=== PATIENT | male | born 1950 | race African-American/Black ===

== ENCOUNTER 2017-12-26 13:31 | Outpatient (CLI) | payer MEDICARE ==
[2017-12-26 15:39] LABS: #Basophils 0.1 thou/uL (0.0-0.2); #Eosinphils 0.5 thou/uL (0.0-0.7); #Lymphocytes 2.1 thou/uL (1.20-3.40); #Monocytes 1.3 thou/uL (0.11-0.59); #Neutrophils 4.9 thou/uL (1.40-6.50); %Basophils 0.8 % (0.0-1.0); %Eosinophils 5.3 % (0.0-10.0); %Monocytes 14.5 % (0.0-10.0); %Neutrophils 55.5 % (42.0-75.0); Hemoglobin 12.6 g/dL (14.0-18.0); Mean Corpuscular HGB CONC 31.9 g/dL (32.0-36.0); Mean Corpuscular Hemoglobin 27.5 pg (27.0-31.0); Mean Corpuscular Volume 86.2 fL (78.0-98.0); Mean Platelet Volume 6.1 fL (7.4-10.4); Platelet Count 321 thou/uL (130-400); RBC Distribution Width 12.6 % (11.5-14.5); Red Blood Cell (RBC) Count 4.59 mill/uL (4.70-6.10); White Blood Cell (WBC) Count 8.9 thou/uL (4.8-10.8)
[2017-12-26 16:07] LABS: Anion Gap 12 mmol/L (10-20); BUN (Urea Nitrogen) 12 mg/dL (8.4-25.7); Calc. Creatinine Clearance 0 mL/min (70-130); Calcium 9.5 mg/dL (7.8-10.44); Carbon Dioxide 25 mmol/L (23-31); Chloride 103 mmol/L (98-107); Estimated GFR-MDRD Greater than 90; Glucose 79 mg/dL (80-115); Potassium 4.2 mmol/L (3.5-5.1); Sodium 136 mmol/L (136-145)
== END 2017-12-26 13:32 | disposition home or self-care (01) ==
LOC: LABBT 13:31
PROVIDERS: ATTEND Specialist
DX: Z01.818 Encounter for other preprocedural examination (principal); C83.30 Diffuse large B-cell lymphoma, unspecified site
CPT/HCPCS: 80048; 85025; 93005; 93010; 93306

== ENCOUNTER 2017-12-27 12:55 | Outpatient (CLI) | payer MEDICARE ==
--- NOTE | 2017-12-27 15:39 | PET ---
PET CT: 12/27/17 HISTORY: 67-year-old male with lymphoma. Exam requested for initial staging. TECHNIQUE: PET scan with CT attenuation correction is performed from the base of the brain to the proximal thigh s following intravenous administration of 10.2 millicuries [id number] in the right wrist. FINDINGS: Extensive hypermetabolic guzman metabolism is seen in the neck, chest, axilla, abdomen, pelvis and ing uinal regions. These include The nasopharynx, bilateral cervical, bilateral axillary, right hilar, an d infrahilar, right internal mammary, abdominopelvic and bilateral inguinal lymph nodes. Maximum SUV is noted in the right inguinal lymph node measuring 48. There is increased uptake in the spleen. Upta ke is markedly increased compared to the liver. No hypermetabolic pulmonary nodules, liver, adrenal, or skeletal lesions are seen. There is physiolog ic activity in the GI and tracts and the visualized portions of the brain. The CT scan used for attenuation correction demonstrates no evidence of pleural effusions or ascites. There is a 2 cm right adrenal nodule without abnormal FDG localization (SUV 1.5). IMPRESSION: Viable lymphoma on both sides of the diaphragm with a Deauville criteria score of 5. POS: [facility]
== END 2017-12-27 12:56 | disposition home or self-care (01) ==
LOC: PET 12:55
PROVIDERS: ATTEND Internal Medicine Hematology & Oncology
DX: C85.90 Non-Hodgkin lymphoma, unspecified, unspecified site (principal)
CPT/HCPCS: 78815; A9552

== ENCOUNTER 2017-12-30 10:37 | Day surgery (SDC) | payer MEDICARE ==
[2017-12-26 14:36] VITALS: BMI 46.0
[2017-12-30] MEDS ORDERED: CEFAZOLIN/Water 2 GM/20 ML SYRINGE ONE (11:05)
[2017-12-30] MEDS ORDERED: Ketorolac Tromethamine 30 MG/ML VIAL ONE (11:05)
[2017-12-30] MEDS ORDERED: Lidocaine 1% (PF) 30 ML VIAL ONE (12:18)
[2017-12-30] MEDS ORDERED: Bupivacaine/Epinephrine 0.25% 30 ML VIAL ONE ×2 (12:18→13:12)
[2017-12-30] MEDS ORDERED: Fentanyl 100 MCG/2 ML VIAL ONE (12:33)
[2017-12-30] MEDS ORDERED: Midazolam HCl 2 mg/2 ml Vial ONE (12:33)
[2017-12-30] MEDS ORDERED: Lidocaine 2% Jelly 5 ML TUBE ONE (12:33)
[2017-12-30] MEDS ORDERED: Succinylcholine Chloride 20 MG/ML 10 ml SYRINGE FS ONE (14:01)
[2017-12-30] MEDS ORDERED: Glycopyrrolate 0.2 MG/ML 5 ML SYRINGE ONE (14:01)
[2017-12-30] MEDS ORDERED: Ondansetron HCl/PF 4 MG/2 ML Vial ONE (14:01)
[2017-12-30] MEDS ORDERED: PHENYLEPHRINE-NS 100 MCG/ML 10 ML SYRINGE ONE (14:01)
[2017-12-30] MEDS ORDERED: Dexamethasone 20 MG/5 ML VIAL ONE (14:01)
[2017-12-30] MEDS ORDERED: PROPOFOL 200 MG/20 ML VIAL ONE (14:01)
[2017-12-30] MEDS ORDERED: Lidocaine 1% PF 5 ML VIAL ONE (14:01)
--- NOTE | 2017-12-30 15:12 | RAD ---
CHEST ONE VIEW: History: Mediport placement. Comparison: 10-22-13 FINDINGS: Cardiac silhouette is magnified by projection. Pulmonary vasculature is unremarkable. Mediastinum is midline. Tip of a right subclavian Port-a-cath projects over the superior vena cava. No evidence of p neumothorax. IMPRESSION: Right subclavian Mediport is in good radiographic position. POS: [facility]
--- NOTE | 2017-12-30 16:40 | OP ---
DATE OF PROCEDURE: 12/30/2017 PREOPERATIVE DIAGNOSIS: Lymphoma. POSTOPERATIVE DIAGNOSIS: Lymphoma. OPERATION PERFORMED: Right subclavian standard size power compatible MediPort placement, right infra inguinal lymph node excisional biopsy. SURGEON: Camilo Garcia M.D. ANESTHESIA: General endotracheal per Rafat Oreilly CRNA. INDICATIONS: The patient is a morbidly obese 67-year-old black male. He has been diagnosed with lym phoma following needle biopsy. Additional tissue is requested for further diagnosis. Port is placed for chemotherapy. DESCRIPTION OF PROCEDURE: Informed consent was obtained. The patient taken to the operating room wh ere general endotracheal anesthesia obtained with the patient in supine position. Right chest and ri ght groin was prepped with ChloraPrep and draped in sterile fashion. Local anesthetic was infiltrate d in the right subclavian location. Large gauge needle was passed under the clavicle and subclavian vein and guidewire was passed through the needle and fluoroscopically confirmed to enter the superior vena cava. Additional local anesthetic was infiltrated. A transverse incision was created based on needle insertion site. Subcutaneous pocket was dissected. Introducer dilator was passed over the g uidewire. Catheter was passed through the introducer and the introducer was removed in the usual pee l-apart fashion. The catheter was positioned with the tip at the atrial caval junction. It was trimmed to the appropr iate location and secured to the hub of the MediPort. The port was secured to pectoral fascia with 2 interrupted sutures of 3-0 Prolene. Wound was closed in layers with 3-0 and 4-0 Monocryl. Dermabon d was placed externally. Attention was turned to the right groin. There is easily palpable lymph node in infrainguinal locati on. Local anesthetic was infiltrated using 0.25% Marcaine with epinephrine. Transverse incision was created over the palpable mass. Dissection was carried directly down onto the enlarged lymph node. This was carefully dissected circumferentially, dividing all investing vasculature and lymphatics be tween hemostats and 3-0 silk ties. The specimen was passed off the field and sent as a fresh specime n. The wound was closed in layers using interrupted sutures of 3-0 Vicryl to approximate the deep la yers and 3-0 Monocryl suture to approximate the subcutaneous tissue. Skin edges approximated with 4- 0 Monocryl subcuticular suture and Dermabond was placed externally. There were no complications. Bl ood loss was negligible. The patient tolerated the procedure well and was taken to recovery room in stable condition.
== END 2017-12-30 15:35 | disposition home or self-care (01) ==
LOC: SDC 10:37
PROVIDERS: ATTEND Specialist
PROC: 07BH0ZX Excision of Right Inguinal Lymphatic, Open Approach, Diagnostic (ICD-10-PCS; principal; 2017-12-30)
PROC: 0JH60WZ Insertion of Totally Implantable Vascular Access Device into Chest Subcutaneous Tissue and Fascia, Open Approach (ICD-10-PCS; 2017-12-30)
PROC: 02HV33Z Insertion of Infusion Device into Superior Vena Cava, Percutaneous Approach (ICD-10-PCS; 2017-12-30)
PROC: B518YZA Fluoroscopy of Superior Vena Cava using Other Contrast, Guidance (ICD-10-PCS; 2017-12-30)
DX: C83.35 Diffuse large B-cell lymphoma, lymph nodes of inguinal region and lower limb (principal); I10 Essential (primary) hypertension; G47.30 Sleep apnea, unspecified; G89.29 Other chronic pain; F32.9 Major depressive disorder, single episode, unspecified; G40.909 Epilepsy, unspecified, not intractable, without status epilepticus; M54.9 Dorsalgia, unspecified; Z88.0 Allergy status to penicillin; Z88.5 Allergy status to narcotic agent; Z88.8 Allergy status to other drugs, medicaments and biological substances; Z79.82 Long term (current) use of aspirin; Z79.899 Other long term (current) drug therapy
CPT/HCPCS: 36561; 38500; 71045; 88184; 88305; 88341; 88342; 88360; 88365; C1788; J0131; J1100; J1642; J1885; J2001; J2250; J2405; J2704; J3010

== ENCOUNTER 2018-01-25 07:31 | Inpatient (IN) | payer MEDICARE ==
[2018-01-25 08:19] LABS: Hemoglobin 10.8 g/dL (14.0-18.0); Mean Corpuscular Hemoglobin 26.9 pg (27.0-31.0); Mean Corpuscular Volume 84.3 fL (78.0-98.0); Mean Platelet Volume 6.8 fL (7.4-10.4); Platelet Count 330 thou/uL (130-400); RBC Distribution Width 15.1 % (11.5-14.5); Red Blood Cell (RBC) Count 4.01 mill/uL (4.70-6.10); White Blood Cell (WBC) Count 12.7 thou/uL (4.8-10.8)
[2018-01-25 08:28] LABS: INR-International Normal Ratio 1.3; PTT 30.9 SEC (22.9-36.1)
--- NOTE | 2018-01-25 08:37 | RAD ---
CHEST 1 VIEW: Date: 01/25/18 HISTORY: Hypotension. Weakness. COMPARISON: 12/30/17. FINDINGS: Cardiac silhouette is magnified by projection. Pulmonary vasculature upper limits of normal and accen tuated by shallow inspiration. Mediastinum is midline with right subclavian MediPort. No lobar consol idation or evidence of pneumothorax. IMPRESSION: Stable radiographic appearance of the chest. No active cardiopulmonary abnormalities are demonstrated . POS: [facility]
[2018-01-25 08:39] LABS: ALT (SGPT) 34 U/L (8-55); AST (SGOT) 68 U/L (5-34); Albumin 3.1 g/dL (3.4-4.8); Alkaline Phosphatase 96 U/L (40-150); Anion Gap 22 mmol/L (10-20); BUN (Urea Nitrogen) 28 mg/dL (8.4-25.7); Bilirubin, Total 0.9 mg/dL (0.2-1.2); CK (CPK) 53 U/L (30-200); Calc. Creatinine Clearance 0 mL/min (70-130); Calcium 9.4 mg/dL (7.8-10.44); Carbon Dioxide 18 mmol/L (23-31); Chloride 101 mmol/L (98-107); Estimated GFR-MDRD 71; Globulin 3.2 g/dL (2.4-3.5); Glucose 69 mg/dL (80-115); Potassium 4.3 mmol/L (3.5-5.1); Protein, Total 6.3 g/dL (5.8-8.1); Sodium 137 mmol/L (136-145)
[2018-01-25 08:42] LABS: CKMB 4.1 ng/mL (0-6.6)
[2018-01-25 08:47] LABS: Troponin I 0.403 ng/mL (< 0.028)
[2018-01-25 08:56] LABS: Band 4 % (5-11); Lymphocytes 19 % (21-51); MDiff Complete? YES; Monocytes 15 % (0-10); Neutrophil 59 % (42-75); PLT Morphology Comment Appears Adequate; Polychromasia SLIGHT = 2-3 cells (100X) (0-2/hpf); Promyelocytes 1 % (0-0); Reactive Lymphocytes 1 % (0-10); Target Cells SLIGHT = 2-5 cells (100X) (0-1/hpf)
[2018-01-25] MEDS ORDERED: Enoxaparin Sodium 100 MG/ML SYRINGE ONE (09:09)
[2018-01-25] MEDS ORDERED: Enoxaparin Sodium 30 MG/0.3 ML SYRINGE ONE (09:09)
[2018-01-25 09:56] LABS: Magnesium 2.4 mg/dL (1.6-2.6); Phosphorus 3.6 mg/dL (2.3-4.7)
--- NOTE | 2018-01-25 10:16 | HP ---
DATE OF ADMISSION: 01/25/2018 PRIMARY CARE PHYSICIAN: Dr. Brandie Graham. PRIMARY ONCOLOGIST: Dr. Jaramillo. PRIMARY SHEET METAL SHOP SUPERVISOR: Dr. Zaid Gilbert. CHIEF COMPLAINT: Generalized weakness. HISTORY OF PRESENT ILLNESS: The patient is a 67-year-old male with hypertension , congestive heart failure in the past with recent diagnosis of large B cell lymphoma, presented to the emergency room with generalized weakness that has been going on for the last 1-2 weeks. It got worse today for which he presented to the emergency room. He has not been eating and drinking well due to significant throat pain and difficulty swallowing from lymphoma. His overall strength has been declining. He is unable to ambulate. He also had intermittent palpitations without any chest discomfort. He gets short of breath on minimal exertion. He denies any focal deficits, fever, chills or syncope. He is compliant with all of his medications including lisinopril and Lasix. In the emergency room, he was found to have hypotensive with blood pressure of 92/52 with lactic acid of 9 and troponin of 0.4. He received 1 dose of Lovenox , aspirin and IV fluids in the emergency room. PAST MEDICAL HISTORY: 1. Hypertension. 2. History of congestive heart failure with recent echocardiogram showing left ventricular ejection fraction of 60%-65% with grade I/III diastolic dysfunction. 3. Dyslipidemia. 4. Chronic low back pain. 5. Glaucoma. 6. Degenerative joint disease. 7. Recent diagnosis of large B cell lymphoma. PAST SURGICAL HISTORY: 1. Recent MediPort placement. 2. Lymph node biopsy. 3. I&D of right index finger. 4. Right knee arthroscopy. ALLERGIES: The patient is allergic to PENICILLIN, MORPHINE and FLUOXETINE. CURRENT HOME MEDICATIONS: Confirmed with the medication bottles at the bedside , aspirin 81 mg daily, Lasix 40 mg daily, hydralazine 50 mg twice a day, Lisinopril 40 mg daily, Procardia-XL 60 mg daily, simvastatin 40 mg at bedtime, timolol and latanoprost eyedrops, Zocor 40 mg at bedtime. SOCIAL HISTORY: Patient currently lives at home with his family. Denies any alcohol, tobacco or drug use. He is FULL CODE, makes his own decisions with the help of his family. FAMILY HISTORY: Negative for heart disease. REVIEW OF SYSTEMS: The following complete review of systems was negative, unless otherwise mentioned in the HPI or below: Constitutional: Weight loss or gain, ability to conduct usual activities. Skin: Rash, itching. Eyes: Double vision, pain. ENT/Mouth: Nose bleeding, neck stiffness, pain, tenderness. Cardiovascular: Palpitations, dyspnea on exertion, orthopnea. Respiratory: Shortness of breath, wheezing, cough, hemoptysis, fever or night sweats. Gastrointestinal: Poor appetite, abdominal pain, heartburn, nausea, vomiting, constipation, or diarrhea. Genitourinary: Urgency, frequency, dysuria, nocturia. Musculoskeletal: Pain, swelling. Neurologic/Psychiatric: Anxiety, depression. Allergy/Immunologic: Skin rash, bleeding tendency. PHYSICAL EXAMINATION: VITAL SIGNS: Recent vital signs showed temperature 98.8, blood pressure 97/58, pulse rate of 73, respiration 22 with O2 saturation 94% on room air. GENERAL: A 67-year-old male, ill appearing. Denies any pain. Feels generally weak. HEENT: Head is atraumatic, normocephalic. Sclerae are anicteric. Moist mucous membrane, no oral lesion. NECK: Supple, no JVD appreciated. No carotid bruit. LUNGS: Clear to auscultation bilaterally with scattered rales at bases. HEART: S1, S2 present. Regular rate and rhythm, 2/6 systolic murmur over the mitral area. ABDOMEN: Obese, soft. Bowel sounds present. EXTREMITIES: A 1+ edema in bilateral lower extremities. No calf tenderness. SKIN: Warm and dry. LYMPH NODES: No palpable lymph nodes in the neck. PERIPHERAL VASCULAR: Radial pulses palpable bilaterally. NEUROLOGIC: Grossly nonfocal. Power was 5/5 in all extremities. Finger-to- nose test was normal. PSYCHIATRIC: The patient is alert, awake, oriented x3. LABORATORY DATA AND X-RAY FINDINGS: 1. CBC showed WBC 12.7 with hemoglobin 10.8, hematocrit 33.8, platelet of 330. 2. INR 1.3, PT 16.0. 3. Lactic acid 9, glucose of 69, AST 68, ALT 34. Troponin of 0.403, bicarbonate 18, BUN 28, creatinine 1.22. LDH was 2368. 4. Chest x-ray by my review was negative for infiltrate or edema. 5. EKG by my review showed atrial flutter, rate controlled. IMPRESSION: 1. Generalized weakness, multifactorial. 2. Elevated troponins secondary to non-ST elevation myocardial infarction with New onset Atrial flutter. Rule out pulmonary embolism. 3. Hypotension. Possibilities include severe dehydration from poor oral intake due to significant lymphadenopathy. Other possibility could be sepsis. Blood cultures have been sent. 4. Metabolic acidosis/lactic acidosis. 5. Dehydration. 6. Recent diagnosis of large B cell lymphoma with recent MediPort placement. 7. MORPHINE, PENICILLIN, and PROZAC allergy. 8. Chronic anemia. 9. Leukocytosis of unclear etiology, probably sepsis induced. 10. Deconditioning. 11. Dyslipidemia. 12. Glaucoma. 13. Morbid Obesity BMI 44. PLAN: The patient will be monitored in the intermediate care unit setting. Cardiology and Oncology will be consulted. We will continue IV fluids. His BNP was normal. Lovenox for Atrial flutter. Rule out pulmonary embolism. Recheck ketones. Empiric antibiotics. We will repeat lactic acid. Consult physical therapy, occupation therapy. Echocardiogram was recently done and was reviewed. A.m. labs. Plan of care was discussed with the patient in detail. He stated understanding. MTDD
--- NOTE | 2018-01-25 10:22 | CT ---
CTA CHEST WITH CONTRAST: Date: 01/25/18 COMPARISON: None. HISTORY: Lymphoma with generalized weakness and shortness of breath. TECHNIQUE: Multiple contiguous axial images were obtained in a CTA of the chest with contrast per pulmonary embo lism protocol. 3D oblique MIP reformats and direct coronal reformats were performed. FINDINGS: The pulmonary arteries are well opacified without filling defects to suggest pulmonary emboli. The he art is normal in size without focal cardiac abnormality. There are multiple enlarged hilar and mediastinal lymph nodes, as well as enlarged lymph nodes in the axillary regions extending up to the supraclavicular regions. This is consistent with the patient's diagnosis of lymphoma. Degenerative changes are seen in the spine. The visualized subdiaphragmatic structures are unremarkab le. No focal infiltrates are seen in the lungs. No pneumothorax or pleural effusions are seen. There is a calcified granuloma in the left apex. IMPRESSION: 1. No evidence of pulmonary thromboembolism. 2. Enlarged lymph nodes in multiple areas consistent with patient's diagnosis of lymphoma. POS: [facility]
[2018-01-25] MEDS ORDERED: ISOVUE-370 76%-LOCM 1 ML ONE (11:10)
[2018-01-25] MEDS ORDERED: Calcium Carbonate 500 MG ChewTAB PO PRN (12:45)
[2018-01-25] MEDS ORDERED: Mag-Al 1200 mg/1200 mg/30 ML UDCUP PO PRN (12:45)
[2018-01-25] MEDS ORDERED: Milk Of Magnesia 30 ML UDCUP PO PRN (12:45)
[2018-01-25] MEDS ORDERED: Ondansetron HCl/PF 4 MG/2 ML Vial IVP PRN (12:45)
[2018-01-25] MEDS ORDERED: Ondansetron ODT 4 MG TAB PO PRN (12:45)
[2018-01-25] MEDS ORDERED: Senokot 8.6 MG TAB PO PRN (12:45)
[2018-01-25] MEDS ORDERED: Sodium Chloride 0.9% 1,000 ML IV SCH (12:45)
[2018-01-25] MEDS ORDERED: Nitroglycerin 0.4 MG TAB (25 Tab Bottle) PO PRN (12:45)
[2018-01-25 12:54] LABS: Lactic Acid 8.1 mmol/L (0.5-2.2)
[2018-01-25] MEDS ORDERED: cefTRIAXone\\ROCEPHIN 1 GM in Sodium Chloride 0.9% 100 ML IVPB SCH (13:00)
[2018-01-25 13:45] LABS: Troponin I 0.405 ng/mL (< 0.028)
[2018-01-25] MEDS ORDERED: Chloraseptic Spray 180 ml Bottle PO PRN (14:26)
[2018-01-25] MEDS: Lidocaine Viscous Sol 2% 15 ml UD Cup SSP PRN ×2 (15:50→21:09)
[2018-01-25] MEDS: Sodium Chloride 0.9% 1,000 ML IV SCH ×2 (15:53→21:12)
[2018-01-25 16:27] LABS: Bilirubin Small (Negative); Blood, Urine Negative (Negative); Clarity CLEAR (Clear); Glucose, Urine (Dipstick) Negative (Negative); Leukocyte Negative (Negative); Nitrite Negative (Negative); Protein, Urine (Dipstick) 30 mg/dL (Neg-Trace); Specific Gravity, Urine 1.025 (1.002-1.036); Urobilinogen 0.2 mg/dL (0.2-1.0)
[2018-01-25 16:27] LABS: Critical Call Chem Troponin I RESULT DECREASING; Troponin I 0.404 ng/mL (< 0.028)
[2018-01-25 16:29] LABS: Squamous Epithelial 0-3 HPF (0-3); WBC/HPF 0-3 HPF (0-3)
[2018-01-25 16:34] LABS: Pathc Cast-AUWi Flag 4.94 (0-2.49)
[2018-01-25 16:49] LABS: Bacteria/HPF 4+ HPF (None Seen); Manual Microscopic Reviewed? No Path Casts Seen; RBC/HPF None Seen HPF (0-3); Renal Epithelial None Seen HPF (0-3); Transitional Epithelial NONE SEEN HPF (0-3)
--- NOTE | 2018-01-25 17:54 | CON ---
DATE OF CONSULTATION: 01/25/2018 REASON FOR CONSULTATION: Lymphoma. HISTORY OF PRESENT ILLNESS: Mr. Cordova is a 67-year-old -[place]onegas[place] male who was diagnosed with a large B cell lymphoma in 11/2017. He presented with several-week history of fatigue and swelling of the neck and axilla area. He had night sweats. A CT scan confirmed the extensive lymphadenopathy with the largest right jugulodigastric node measuring 2.1 x 2.2 cm. He was seen by Dr. Bowling, ENT, who performed a fine needle aspiration of a neck nodule, findings confirmed a large B cell lymphoma. He required more tissue for molecular studies so underwent a biopsy of lymph node, but it confirmed diffuse large B cell lymphoma. He is positive for BCL 6 rearrangement, polysomy 8. He had a PET scan performed in early December that showed lymphoma on both sides of the diaphragm including extensive hypermetabolic nodules in the neck, chest, axilla , abdomen and pelvis and inguinal regions. He had an echocardiogram, which showed EF of 60%. He was undergoing financial clearance and assistance for chemotherapy as he had an extremely high copay with his insurance. He was financially cleared and was scheduled to see me tomorrow for chemotherapy teaching. Over the past month, he has lost over 30 pounds. He has had significant night sweats and having more odynophagia. He has been able to swallow his pills and take his medications daily. He presented to the emergency room today for generalized weakness. He was mildly dehydrated and admitted for further treatment. PAST MEDICAL HISTORY: 1. 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 2. Hypertension. 3. History of cerebrovascular accident. 4. Dyslipidemia. PAST SURGICAL HISTORY: 1. Recent MediPort placement. 2. Lymph node biopsy. 3. Knee surgery. 4. Index finger I&D. ALLERGIES: FLUOXETINE, MORPHINE and PENICILLIN. HOME MEDICATIONS: 1. Aspirin 81 mg daily. 2. Lasix 40 mg daily. 3. Apresoline 50 mg b.i.d. 4. Lisinopril 40 mg daily. 5. Nifedipine 60 mg daily. 6. Zocor 40 mg daily. FAMILY HISTORY: Brother has colon cancer. SOCIAL HISTORY: , has 3 grown children, lives alone. No alcohol, tobacco or illicit drug use. REVIEW OF SYSTEMS: Constitutional: No fever or chills. Positive for night sweats and 30-pound weight loss. Eyes: No blurred or double vision. ENT: Positive for pain, hoarseness, sore throat and dysphagia. Cardiovascular: No chest pain, palpitations, syncope. Respiratory: Positive for shortness of breath, no dyspnea on exertion or orthopnea. Gastrointestinal: No nausea, vomiting, diarrhea, constipation or abdominal pain. Genitourinary: No dysuria or hematuria. Musculoskeletal: Positive for back pain. Skin: No rash or pruritus. Hematologic: Denies bleeding, bruising or clotting. Neurologic: Positive for weakness. Psychiatric: Positive for depression. PHYSICAL EXAMINATION: VITAL SIGNS: Temperature is 98.5, pulse is 71, respiratory rate 24, BP is 91/ 51. GENERAL: This is an obese male in no acute distress. HEENT: Normocephalic, atraumatic. Pupils equal and reactive to light. NECK: Tender with palpable lymphadenopathy. CARDIOVASCULAR: Regular rate and rhythm. LUNGS: Clear. ABDOMEN: Obese, mildly tender to palpation. No hepatosplenomegaly. EXTREMITIES: No clubbing, cyanosis or edema. SKIN: No rash. LYMPHATIC: He has bilateral cervical, axillary lymphadenopathy, has palpable inguinal node lymphadenopathy. NEUROLOGIC: Deficit nonfocal. PERTINENT LABORATORY AND X-RAYS: Current WBCs are 12.7, hemoglobin 10.8, hematocrit 33.8, platelet count 330,000, 59% neutrophils, 4% bands, 20% lymphocytes. PT 16.0, INR is 1.3, PTT is 30.9. Sodium is 137, potassium 4.3, chloride 101, CO2 is 18, BUN is 28, creatinine 1.22. Lactic acid is 9, total bilirubin is 0.9, AST 68, ALT 34, alkaline phosphatase is 96. LDH is 2368, CK- MB is 4.1, troponin 0.403. BNP is 98, serum total protein 6.3, albumin 3.1, globulin 3.2. A CT angio of the chest showed no evidence of pulmonary embolism. IMPRESSION: 1. Stage IV diffuse large B cell lymphoma with extensive neck, chest, axilla, abdominal, pelvis, and inguinal lymphadenopathy. 2. Odynophagia secondary to #1. 3. Weakness. DISCUSSION: The patient has been started on some IV fluids. I will check uric acid and start allopurinol in anticipation of cycle 1 of chemotherapy in the next couple of days. Risks were discussed with the patient which includes tumor lysis syndrome and possible . He understands the risk. We discussed code status. We will ask Palliative Care Team to assist with advanced directives. We will follow him closely. Thank you for the consult. NIRANJAN
[2018-01-25] MEDS: Metoprolol Tartrate 25 MG TAB PO SCH (21:10)
[2018-01-25] MEDS: Allopurinol 300 MG TAB PO SCH (21:10)
[2018-01-25] MEDS: Enoxaparin Sodium 100 MG/ML SYRINGE SC SCH (21:10)
[2018-01-25] MEDS: Docusate 100 MG CAP PO SCH (21:11)
[2018-01-25] MEDS: Famotidine 20 MG TAB PO SCH (21:11)
[2018-01-25] MEDS: Timolol 0.5% Ophth Soln 5 ml Bottle L EYE SCH (21:11)
[2018-01-25] MEDS: Latanoprost 0.005% Ophth Soln 2.5 ml Bottle EA EYE SCH (21:12)
--- NOTE | 2018-01-26 00:41 | CON ---
CARDIOLOGY CONSULTATION DATE OF CONSULTATION: 01/25/2018 PRIMARY CARE PHYSICIAN: Dr. Brandie Graham. PRIMARY TORPEDO MAN: Dr. Zaid Gilbert. REFERRING PHYSICIANS: Dr. Moreau and Dr. Joyce. REASON FOR CARDIOLOGY CONSULTATION: Non-STEMI. HISTORY OF PRESENT ILLNESS: Mr. Cordova is a 67-year-old -[place]ones[place] male with a significant history of large B cell lymphoma, hypertension, chronic diastolic heart failure, hyperlipidemia, sleep apnea, and obesity. The patient started having the weakness since patient underwent a MediPort placement in for treatment of large B cell lymphoma. He also lost appetite because of pain in his throat and unable to swallow well due to the lymphoma. Today, the patient decided to call the EMS because he could not ambulate well, experienced of dizziness, and severe weakness. At that ER, the patient was found to have Atrial flutter with heart rate 60s to 70s. Cardiology consult was ordered due to new onset of Atrial flutter and the elevated troponin, which was 0.403 and now second troponin 0.405. Patient denies any shortness of breath , dizziness, lightheadedness, heaviness, or discomfort in his chest, palpitation , fluttering in his chest, nauseate, or numbness in the left upper extremity or any other cardiac complaints except worsening of weakness. He has lost about 30 pounds in the last 1 month due to very poor appetite. His recent echocardiogram was done in 12/26/2017, which shows EF 60-65%, grade I diastolic dysfunction, mild tricuspid regurgitation, and mild mitral valve regurgitation. The patient's last stress test was done in 2001, which shows mild reversibility in the inferior wall and diastolic volume suggested diffuse atherosclerotic cardiomyopathy and minimal reversibility in the inferior wall. Patient has had a Holter monitor in 2009 for a complaint of palpitation which showed normal. The patient had a vein study done in 2009, which shows no evidence of DVT and no evidence of any reflux in the bilateral lower extremities. The patient had a PET scan done in 12/27/2017, shows visible lymphoma on the both sides of diaphragm with Deauville criteria score of 5. CT scan today showed no evidence of pulmonary thrombus, but present of enlarged lymph nodes in the multiple areas consistent with the patient's diagnosis of lymphoma. PAST MEDICAL HISTORY: 1. Hypertension. 2. Obstructive sleep apnea. He uses BiPAP at night. 3. Hyperlipidemia. 4. Left foot drop. He wears the brace. 5. Glaucoma. 6. Hard to hearing. 7. Chronic back pain due to three hernia disk. 8. Large B cell lymphoma. 9. Chronic diastolic heart failure. PAST SURGICAL HISTORY: 1. Right hand surgery. 2. Right knee surgery. FAMILY HISTORY: There is significant family history of hypertension. Patient' s brother has a history of a colon cancer. Patient's father has a history of CVA. SOCIAL HISTORY: The patient denies tobacco, EtOH, or illicit drug abuse. Prior to this admission, he was able to move around self and could drive. ALLERGIES: The patient is allergic to PENICILLIN, MORPHINE, FLUOXETINE. CURRENT MEDICATIONS: Aspirin 81 mg once a day, Lasix 40 mg once a day, hydralazine 50 mg twice a day, lisinopril 40 mg once a day, Procardia-XL 60 mg once a day, simvastatin 40 mg once a day, timolol and latanoprost eyedrops, and Zocor 40 mg at bedtime. REVIEW OF SYSTEMS: Patient's 12-point review of systems was negative, unless otherwise mentioned in the HPI. The patient denied hematuria and blood in the stool and in the urine. Prior to this admission, the patient was really active. Sometimes the patient uses a cane for his balance. PHYSICAL EXAMINATION: VITAL SIGNS: Blood pressure 91/51, pulse is 71 with atrial flutter, temperature 98.5, O2 sat 98% with room air. GENERAL: The patient is alert and oriented x4, in no acute distress. HEAD: Normocephalic, atraumatic. ENT AND MOUTH: Oral and nasal mucosa are moist. Redness at throat area. NECK: Supple. No JVD, but they have a very enlarged lymphadenopathy. LUNGS: Clear to auscultation bilaterally. No wheezing, rales, or rhonchi noted. HEART: Irregularly irregular. There is no murmur, hives, or thrill noted. No S3 or S4 present. ABDOMEN: Distended. Bowel sounds are present, patient has discomfort to the palpitation. MUSCULOSKELETAL: Patient able to move all extremities. They have 2+ pulses in bilateral lower extremities. Carotid pulses are present. No bruit or thrill noted. SKIN: Warm and dry. No bruise skin lesion noted. NEUROLOGIC: Patient is alert and oriented x4. Nonfocal. PSYCHIATRIC: The patient is calm and cooperative. LABORATORY AND DIAGNOSTIC DATA: WBC 12.7, hemoglobin 10.8, hematocrit 33.8, platelet 330,000. PT is 6.0. INR 1.3, aPTT 30.9. Sodium of 137, potassium 4.3 , BUN 28, creatinine 1.22. Lactic acid 9.0 and 8.1, magnesium 2.4. AST is 68, ALT 34. Lactate dehydrogenase 2368, creatine kinase 53, CK-MB is 4.1. Troponin was 0.403 and 0.405, BNP 498. TSH 0.3722. Chest x-ray shows no active cardiopulmonary abnormalities and a CT chest shows no PE and there were enlarged lymph nodes in multiple areas present. ASSESSMENT AND PLAN: 1. Elevated troponin. This is possible due to the severe dehydration, sepsis, or possible new onset of atrial flutter. The patient is on 125 mL per an hour of Normal saline via IV. The patient's third troponin level was just taken and the result is pending at this moment. Patient denies any cardiac complaints. I would like to defer the decision to Dr. Charles or Dr. Gilbert for possible further cardiac evaluation. 2. New onset of atrial flutter. The rate is well controlled at this moment, he is on aspirin 325 mg once a day and Lovenox 100 mg subcu twice a day, metoprolol 12.5 mg twice a day. We would like to order electrophysiology consult for new onset of atrial flutter. At this moment, we would like to continue current medication. 3. Severe dehydration. The patient is alert and oriented x4; however, the patient is complaining of severe weakness at this moment. He is on the normal saline 125 mL per an hour. The patient's EF in 12/2017, shows EF of 60-65% and mild diastolic dysfunction. We would like to monitor patient's condition and adjust the patient's IV fluid rate as appropriate due to medical history of chronic diastolic HF. 4. Large B-cell lymphoma. According to the Oncology Service, the patient has a lymphoma all over the body, bilateral side, possibly patient is going to start the chemotherapy within 2 days. 5. Possible sepsis. The patient's lactic acid was more than 4 today. The patient's WBC is 5.7. Patient is on normal saline 125 mL per an hour. Patient' s blood pressure is hypotensive, but still stable. We would like to continue to monitor. 6. Hypotension. The patient's blood pressure is less than 100; however, the patient is alert, oriented x4, and the patient is on normal saline 125 mL per an hour, we would like to continue. 7. Hyperlipidemia. Patient is on Zocor 40 mg once a day at night. We like to resume those medications once patient's liver functions are stable. 8. Chronic anemia. Today, his hemoglobin level 10.8, hematocrit level at 33.8. Patient is going to have CBC tomorrow. 9. Chronic diastolic heart failure. The patient's condition is stable at this moment. Patient is on the beta jairo. PATRICK inhibitor, and/or diuretic may start once the patient's vital sign is stable. 10. Obstructive sleep apnea. He is on continuous pulse ox checks. We like to defer this to the primary care doctor. 11. Obesity. Thank you for allowing the Cardiology Service to participate in care of this patient. We would like to follow along with the patient care team and make suggestion as appropriate. NIRANJAN
--- NOTE | 2018-01-26 01:00 | CON ---
CARDIOLOGY CONSULTATION DATE OF ADMISSION: 01/25/2018 DATE OF CONSULTATION: 01/25/2018 INDICATION FOR CONSULTATION: A 67-year-old patient who has been diagnosed with B-cell lymphoma, who presented to the hospital due to shortness of breath. He has a history of congestive heart failure i n the past, which appears to be diastolic in nature. He also was found to be in atrial flutter and h as a history of hypertension. He has been followed by Dr. Gilbert for several years now. At this t [place], we were asked to see him due to his atrial flutter. He was diagnosed actually recently by PET scan in early December, showing the lymphoma. He had an echoca rdiogram at that time, which showed ejection fraction about 60%. He was to start chemotherapy. He h as lost about 30 pounds and has been having significant night sweats as well as sweats with minimal e xertion. He mainly went to the emergency room today due to generalized weakness and was found to hav e some mild dehydration and was admitted for further evaluation. PAST MEDICAL HISTORY: Significant for recent stage IV large B-cell lymphoma, diagnosis which is diff use. He also has hypertension, history of CVA in the past, dyslipidemia. He has had lymph node biop sies, knee surgery, and index finger I&D. Please refer to the notes already dictated by my nurse pra ctitioner for his other past medical history, allergies, medications, and review of systems. PHYSICAL EXAMINATION: GENERAL: Reveals an elderly gentleman who is in no acute distress at this time. He is eating some J ell-O and appears to be easily able to do this. VITAL SIGNS: His blood pressure is 113/71, heart rate is 76, respiratory rate 24. He is afebrile. HEENT: Shows the head to be normocephalic and atraumatic. He does have significant lymph nodes note d in the supraclavicular area and also in the neck area. I did not hear any bruits. CHEST: Actually appeared to be clear to auscultation. CARDIOVASCULAR: Revealed a regular rhythm at this time on the monitor; however, shows he does have a trial fibrillation with a controlled ventricular response. Did not hear any gross murmurs. ABDOMEN: Shows morbid obesity. EXTREMITIES: Showed no clubbing or cyanosis. Pedal pulses are difficult to palpate, but were presen t. NEUROLOGIC: The patient appears to be intact. LABORATORY AND DIAGNOSTIC DATA: EKG shows atrial flutter with a well-controlled ventricular response , appears to be 3 and 4:1 heart block with the atrial flutter. His laboratory data shows WBC of 12.7 , hemoglobin was 10.8. His troponin I was also indeterminate, but has remained the same at 0.405 and 0.403. Does not appear to be suffering a myocardial infarction, may be due just to the cardiac saul nd with his lymphoma as well as with the atrial flutter. His sodium is 137, creatinine is 1.22. BUN was 28. He has 4+ bacteria in the urine. IMPRESSION: 1. Atrial flutter with a controlled ventricular response. We will ask armhole feller handstitching machine to see th e patient in consultation. He perhaps will need to undergo an ablation, it would be the easiest meth od to relieve his atrial flutter, but at this time, the rate is under good control. We may just cont inue to manage him medically. 2. B-cell lymphoma, which we dealt with by the Oncology Service. 3. Hypertension. This is under good control at this time. We will continue to follow the patient w ith you. Further care of the patient will be by Dr. Gilbert when he reviews the patient tomorrow. We can consider repeating the echocardiogram. His last echocardiogram, however, was just about a mon ago and did not see an indication to repeat that at this time. He also had a nuclear scan perform ed in 12/2017, which showed evidence of the lymphoma, which was actually on both sides of the diaphra gm. This time, we will continue to follow the patient with you. Thank you very much for the consultation.
[2018-01-26 05:09] LABS: ALT (SGPT) 34 U/L (8-55); AST (SGOT) 73 U/L (5-34); Albumin 2.9 g/dL (3.4-4.8); Alkaline Phosphatase 107 U/L (40-150); Anion Gap 23 mmol/L (10-20); BUN (Urea Nitrogen) 28 mg/dL (8.4-25.7); Bilirubin, Total 0.7 mg/dL (0.2-1.2); Calc. Creatinine Clearance 145 mL/min (70-130); Calcium 8.9 mg/dL (7.8-10.44); Carbon Dioxide 15 mmol/L (23-31); Chloride 103 mmol/L (98-107); Estimated GFR-MDRD 79; Glucose 68 mg/dL (80-115); Magnesium 2.1 mg/dL (1.6-2.6); Phosphorus 3.4 mg/dL (2.3-4.7); Potassium 4.7 mmol/L (3.5-5.1); Protein, Total 5.9 g/dL (5.8-8.1); Sodium 136 mmol/L (136-145)
[2018-01-26 05:32] LABS: Band 10 % (5-11); Eosinophils 2 % (0-10); Hemoglobin 10.3 g/dL (14.0-18.0); Lymphocytes 15 % (21-51); MDiff Complete? YES; Mean Corpuscular HGB CONC 32.5 g/dL (32.0-36.0); Mean Corpuscular Hemoglobin 27.4 pg (27.0-31.0); Mean Corpuscular Volume 84.4 fL (78.0-98.0); Monocytes 21 % (0-10); Neutrophil 49 % (42-75); Nucleated RBC 1 % (0); Platelet Count 320 thou/uL (130-400); RBC Distribution Width 15.2 % (11.5-14.5); Red Blood Cell (RBC) Count 3.77 mill/uL (4.70-6.10); White Blood Cell (WBC) Count 11.4 thou/uL (4.8-10.8)
[2018-01-26] MEDS: Sodium Chloride 0.9% 1,000 ML IV SCH (07:00)
[2018-01-26] MEDS: Docusate 100 MG CAP PO SCH ×2 (08:23→21:21)
[2018-01-26] MEDS: Allopurinol 300 MG TAB PO SCH ×2 (08:23→21:21)
[2018-01-26] MEDS: Enoxaparin Sodium 100 MG/ML SYRINGE SC SCH ×2 (08:24→22:02)
[2018-01-26] MEDS: Metoprolol Tartrate 25 MG TAB PO SCH ×2 (08:24→21:21)
[2018-01-26] MEDS: Famotidine 20 MG TAB PO SCH ×2 (08:24→21:21)
[2018-01-26] MEDS: Lidocaine Viscous Sol 2% 15 ml UD Cup SSP PRN ×2 (08:25→18:30)
[2018-01-26] MEDS: Timolol 0.5% Ophth Soln 5 ml Bottle L EYE SCH ×2 (08:26→21:22)
[2018-01-26] MEDS ORDERED: Aspirin 325 MG TAB PO SCH (09:00)
[2018-01-26] MEDS ORDERED: Sodium Chloride 0.9% 1,000 ML IV SCH (09:12)
[2018-01-26] MEDS ORDERED: metroNIDAZOLE 500 MG TAB PO SCH (09:15)
--- NOTE | 2018-01-26 13:40 | CON ---
DATE OF CONSULTATION: 01/26/2018 REFERRING PHYSICIAN: Dr. Charles I am seeing Mr. Cordova at our [facility] ICU as an electrophysiology net developer consultant. His problems are: 1. Persistent atrial flutter with controlled ventricular rate. A. EKG shows typical isthmus-dependent morphology. 2. History of structurally normal heart with LVEF 60-65% based an echocardiogram in 12/2017. Mild MR and TR, moderately dilated, left atrial size is noted. 3. Diagnosis of large B cell lymphoma with plans for chemotherapy in the near future with extensive regimen. 4. Risk factors including hypertension, dyslipidemia, morbid obesity. 5. History of glaucoma. ALLERGIES: Include FLUOXETINE, MORPHINE, PENICILLIN. MEDICATIONS AT HOME: Hydralazine, furosemide, nifedipine, Tylenol, lisinopril, and aspirin, ____, latanoprost, Timolol, simvastatin, flaxseed oil. SUBJECTIVE: Mr. Cordova is here with increasing fatigue and tiredness. He was evaluated by the Hospitalist and Cardiology Service. He was noted to have multifactorial causes for generalized weakness. Of note, he was found to have a newly found atrial flutter with relatively controlled ventricular rate. He was found to have a leukocytosis, although that now is improving and no evident infection is found, so far blood cultures are negative to date. Urine cultures are also negative. He had some lactic acidosis. Troponins are borderline elevated. Currently he denies PND, orthopnea. He has no stroke-like symptoms, no neurological deficit, no acute bleeding is noted. He is receiving Lovenox for anticoagulation. REVIEW OF SYSTEMS: The rest of the 12-point systems otherwise unremarkable. PAST MEDICAL HISTORY: As above. He did have history of nuclear scan in 12/217 , showed evidence of lymphoma, but no ischemia. He also has a history of chronic low back pain - degenerative joint disease and glaucoma. SOCIAL HISTORY: The patient denies smoking, ETOH or drug abuse. FAMILY HISTORY: Noncontributory. PAST SURGICAL HISTORY: Significant for MediPort placement, lymph node biopsy, right index finger I&D and right knee arthroscopy. PHYSICAL EXAMINATION: VITAL SIGNS: Blood pressure is 103/53, heart rate 69, respirations 18, temperature 98.8 degrees Fahrenheit. GENERAL: This is an alert and oriented man with a ____ BMI, in no apparent distress. NECK: Supple. Jugular veins not distended. CHEST: Coarse without crackles. HEART: Heart sounds are regular to rate and rhythm. No murmur or gallop. ABDOMEN: Benign. Bowel sounds. EXTREMITIES: Extremities without edema, clubbing or cyanosis. NEUROLOGIC: The patient nonfocal. MUSCULOSKELETAL: Intermittent joint pain, ____ deformity. SKIN: Without rash. Weight is 263 pounds. DATABASE: EKG reviewed revealing atrial flutter with typical isthmus-dependent morphology. LABORATORY DATA: Sodium 136, potassium 4.7, BUN 20, creatinine 1.12. INR 1.3. White count 7.4, hemoglobin 10.3, platelet count 320. Blood cultures again negative so far. The troponin levels are 0.4 and 0.4 consecutively. ASSESSMENT AND PLAN: Mr. Cordova is a 67-year-old man with history of B-cell lymphoma, presenting with newly found typical appearing atrial flutter. He also has structurally normal heart on recent echocardiogram, but has left atrial enlargement. He is here with increased fatigue and tiredness which is likely to be multifactorial, but also the atrial flutter could likely contribute. We discussed the etiology of atrial flutter. The mechanisms including the cavotricuspid isthmus dependent circuit. He understands the chance of stroke with this condition as well as the suboptimal performance of the heart. We discussed treatment options which could include continued rate control, likely with anticoagulation versus AGA guided ablation procedure. I detailed the ablation procedure pros and cons about that. He is likely to be stariny aggressive chemo-therapy and also gives him lower chance of stroke in the future. I suspect with an upcoming chemotherapy regimen he is likely to have multiple issues in the future and rate control might be more difficult as well. Hence, I think it is very reasonable to consider the above procedure. He understands and agrees and is willing to proceed. We will schedule him for tomorrow. Thank you again for allowing me to participate in the care of this patient. NIRANJAN
--- NOTE | 2018-01-26 14:24 | PDOC.PN ---
- Subjective Encounter Start Date: 01/26/18 Encounter Start Time: 09:00 Patient seen and examined for gen weakness/Acidosis/Elevated trop/Aflutter. Tolerating full liqd diet. Feels better. No new complaints. No overnight events - Objective Resuscitation Status: Resuscitation Status FULL:Full Resuscitation MAR Reviewed: Yes Vital Signs & Weight: Vital Signs (12 hours) Temp Pulse Pulse Pulse Resp BP BP 01/26/18 11:51 69 67 101/63 01/26/18 08:30 98.8 F 69 18 01/26/18 08:26 69 103/53 L 01/26/18 07:24 98.8 F 65 17 01/26/18 04:00 99.6 F 66 15 BP BP Pulse Ox Pulse Ox Pulse Ox 01/26/18 11:51 103/66 95 96 01/26/18 08:30 96 01/26/18 08:26 01/26/18 07:24 100/59 L 98 01/26/18 04:00 109/66 99 Weight Admit Weight 358 lb 6.4 oz Weight 363 lb 4.8 oz I&O: 01/25/18 01/26/18 01/27/18 06:59 06:59 06:59 Intake Total 2452 Output Total 350 Balance 2102 Result Diagrams: 01/26/18 04:00 01/26/18 04:00 EKG Reviewed by me: Yes (Tele Aflutter) Phys Exam - Physical Examination Constitutional: NAD HEENT: PERRLA, sclera anicteric Neck: no nodes, no JVD, supple Respiratory: no wheezing, no rales, no rhonchi, clear to auscultation bilateral Cardiovascular: no rub, irregular No heaves/pulsations Gastrointestinal: soft, non-tender, no distention, positive bowel sounds Obese Musculoskeletal: no edema, pulses present Neurological: non-focal, normal sensation, moves all 4 limbs Psychiatric: normal affect, A&O x 3 Dx/Plan - Plan DVT proph w/lovenox, DVT proph w/SCDs IMPRESSION/PLAN: 1. Generalized weakness, multifactorial. 2. New onset Atrial flutter/Elevated troponins Await EP input Cont low dose Metoprolol with low dose ASA Cont Anticoag for stroke prophylaxis 3. HTN Cont low dose Metoprolol 4. Metabolic acidosis/lactic acidosis due to Lymphoma/Starvation ketosis/ Dehydration Check VBG Repeat lactic acidosis in AM Blood and urine cultures negative 5. Large B cell lymphoma Plan for Chemo this admission 6. Swallow dysfunction due to neck lymphadenopathy Cont Full liqd diet with local analgesics Microbiology 01/25/18 13:24 Urine clean catch Urine Culture - Preliminary NO GROWTH AT 24 HOURS 01/25/18 08:01 Venous blood - Right Hand Blood Culture - Preliminary Specimen has been received and culture in progress. No Growth to date. 01/25/18 08:01 Venous blood - Left Arm Blood Culture - Preliminary Specimen has been received and culture in progress. No Growth to date. Review of Systems - Review of Systems Respiratory: negative: Cough, Dry, Shortness of Breath, Hemoptysis, SOB with Excertion, Pleuritic Pain, Sputum, Wheezing Cardiovascular: negative: chest pain, palpitations, orthopnea, paroxysmal nocturnal dyspnea, edema, light headedness, other - Medications/Allergies Allergies/Adverse Reactions: Allergies Allergy/AdvReac Type Severity Reaction Status Date / Time fluoxetine Allergy swelling Verified 12/26/17 14:37 morphine Allergy Verified 12/26/17 14:36 Penicillins Allergy Verified 12/26/17 14:36 Medications: Current Medications Acetaminophen (Tylenol) 650 mg PO Q4H PRN PRN Reason: Headache/Fever or Pain Al Hydroxide/Mg Hydroxide (Maalox) 30 ml PO Q6H PRN PRN Reason: Heartburn or Indigestion Allopurinol (Zyloprim) 300 mg PO BID [facility] Last Admin: 01/26/18 08:23 Dose: 300 mg Aspirin (Ecotrin) 81 mg PO DAILY [facility] Calcium Carbonate (Tums) 1,000 mg PO Q4H PRN PRN Reason: Heartburn or Indigestion Diltiazem HCl (Cardizem) 30 mg PO Q6HR PRN PRN Reason: HR >120 sustained Docusate Sodium (Colace) 100 mg PO BID [facility] Last Admin: 01/26/18 08:23 Dose: 100 mg Enoxaparin Sodium (Lovenox) 100 mg SC 0900,2100 [facility] Last Admin: 01/26/18 08:24 Dose: 100 mg Famotidine (Pepcid) 20 mg PO BID [facility] Last Admin: 01/26/18 08:24 Dose: 20 mg Sodium Chloride (Normal Saline 0.9%) 1,000 mls @ 75 mls/hr IV .[id number] [facility] Last Admin: 01/26/18 09:43 Dose: Not Given Ceftriaxone Sodium 1 gm/ (Sodium Chloride) 100 mls @ 200 mls/hr IVPB Q24HR [facility] Latanoprost (Xalatan 0.005% Ophth Soln) 1 drop EA EYE HS [facility] Last Admin: 01/25/18 21:12 Dose: 1 drp Lidocaine HCl (Xylocaine 2% Viscous) 15 ml SSP Q4HR PRN PRN Reason: SORE THROAT Last Admin: 01/26/18 08:25 Dose: 15 ml Magnesium Hydroxide (Milk Of Magnesium) 30 ml PO DAILYPRN PRN PRN Reason: Constipation Metoprolol Tartrate (Lopressor) 12.5 mg PO BID [facility] Last Admin: 01/26/18 08:24 Dose: 12.5 mg Metronidazole (Flagyl) 500 mg PO TID [facility] Nitroglycerin (Nitrostat) 0.4 mg PO Q5MIN PRN PRN Reason: Chest Pain Ondansetron HCl (Zofran Odt) 4 mg PO Q6H PRN PRN Reason: Nausea/Vomiting Ondansetron HCl (Zofran) 4 mg IVP Q6H PRN PRN Reason: Nausea/Vomiting Phenol (Chloraseptic [place] 180 Ml Bot) 0 ml PO BIDPRN PRN PRN Reason: Sore Throat Senna (Senokot) 2 tab PO HSPRN PRN PRN Reason: Constipation Sodium Chloride (Flush - Normal Saline) 10 ml IVF PRN PRN PRN Reason: Saline Flush Timolol Maleate (Timoptic 0.5% Ophth Soln) 1 drop L EYE BID [facility] Last Admin: 01/26/18 08:26 Dose: 1 drp
[2018-01-26] MEDS: metroNIDAZOLE 500 MG TAB PO SCH ×2 (15:03→21:21)
[2018-01-26] MEDS: cefTRIAXone\\ROCEPHIN 1 GM in Sodium Chloride 0.9% 100 ML IVPB SCH (15:04)
[2018-01-26] MEDS: Sodium Bicarbonate 50 MEQ in Sodium Chloride 0.45% 1,000 ML IV SCH (18:23)
[2018-01-26] MEDS: Latanoprost 0.005% Ophth Soln 2.5 ml Bottle EA EYE SCH (21:21)
[2018-01-27 03:42] LABS: Hemoglobin 10.6 g/dL (14.0-18.0); Mean Corpuscular HGB CONC 32.9 g/dL (32.0-36.0); Mean Corpuscular Hemoglobin 27.7 pg (27.0-31.0); Mean Corpuscular Volume 84.2 fL (78.0-98.0); Mean Platelet Volume 6.5 fL (7.4-10.4); Platelet Count 302 thou/uL (130-400); RBC Distribution Width 15.4 % (11.5-14.5); Red Blood Cell (RBC) Count 3.81 mill/uL (4.70-6.10); White Blood Cell (WBC) Count 11.4 thou/uL (4.8-10.8)
[2018-01-27 03:47] LABS: Band 6 % (5-11); Eosinophils 1 % (0-10); Lymphocytes 19 % (21-51); MDiff Complete? YES; Monocytes 16 % (0-10); Neutrophil 58 % (42-75); Target Cells SLIGHT = 2-5 cells (100X) (0-1/hpf)
[2018-01-27 04:10] LABS: Anion Gap 25 mmol/L (10-20); BUN (Urea Nitrogen) 26 mg/dL (8.4-25.7); Calc. Creatinine Clearance 172 mL/min (70-130); Calcium 8.9 mg/dL (7.8-10.44); Carbon Dioxide 12 mmol/L (23-31); Chloride 103 mmol/L (98-107); Estimated GFR-MDRD Greater than 90; Glucose 91 mg/dL (80-115); Magnesium 2.1 mg/dL (1.6-2.6); Potassium 4.7 mmol/L (3.5-5.1); Sodium 135 mmol/L (136-145)
[2018-01-27 04:11] LABS: Lactic Acid 11.2 mmol/L (0.5-2.2)
[2018-01-27] MEDS: Metoprolol Tartrate 25 MG TAB PO SCH ×2 (06:17→20:39)
[2018-01-27] MEDS: Sodium Bicarbonate 50 MEQ in Sodium Chloride 0.45% 1,000 ML IV SCH ×2 (06:23→17:42)
[2018-01-27 07:55] LABS: Base Excess -7.1 mEq/L (-2.0 to +3.0); Hemoglobin (Hb) 11.7 g/dL (12.6-17.4); pH (venous) 7.33 (7.32-7.43)
[2018-01-27 07:56] LABS: Calcium, Ionized 1.1 mmol/L (1.16-1.32); Potassium - ABG Lab 4.3 mmol/L (3.70-5.30)
[2018-01-27] MEDS ORDERED: Heparin 10,000 UNITS/1 ML VIAL ONE (09:03)
[2018-01-27] MEDS ORDERED: Lidocaine 1% (PF) 30 ML VIAL ONE (09:07)
[2018-01-27] MEDS ORDERED: Propofol 500 MG/50 ML VIAL ONE ×3 (10:35→12:30)
[2018-01-27] MEDS ORDERED: Fentanyl 100 MCG/2 ML VIAL ONE ×2 (10:45→12:30)
[2018-01-27] MEDS ORDERED: Propofol 1,000 MG/100 ML VIAL IV ONE (11:04)
[2018-01-27] MEDS: Aspirin 81 mg Enteric Coated Tablet PO SCH (11:52)
[2018-01-27] MEDS: Enoxaparin Sodium 100 MG/ML SYRINGE SC SCH ×2 (11:52→20:38)
[2018-01-27] MEDS: Docusate 100 MG CAP PO SCH ×2 (11:52→20:38)
[2018-01-27] MEDS: Allopurinol 300 MG TAB PO SCH ×2 (11:52→20:38)
[2018-01-27] MEDS: metroNIDAZOLE 500 MG TAB PO SCH ×3 (11:53→20:38)
[2018-01-27] MEDS: Timolol 0.5% Ophth Soln 5 ml Bottle L EYE SCH ×2 (11:53→20:39)
[2018-01-27] MEDS: Famotidine 20 MG TAB PO SCH ×2 (11:53→20:38)
[2018-01-27] MEDS ORDERED: DOPamine 400 MG/D5W 250 ML 250 ML ONE (12:12)
[2018-01-27] MEDS ORDERED: Promethazine HCl 25 MG/ML VIAL IM PRN (13:05)
[2018-01-27] MEDS ORDERED: Ondansetron HCl/PF 4 MG/2 ML Vial IVP PRN (13:05)
[2018-01-27] MEDS ORDERED: Promethazine HCl 25 MG/ML VIAL SLOW IVP PRN (13:05)
[2018-01-27] MEDS ORDERED: Ondansetron HCl/PF 4 MG/2 ML Vial ONE (14:22)
[2018-01-27] MEDS ORDERED: Glycopyrrolate 0.2 MG/ML 5 ML SYRINGE ONE (14:22)
[2018-01-27] MEDS ORDERED: PROPOFOL 200 MG/20 ML VIAL ONE (14:22)
[2018-01-27] MEDS ORDERED: Succinylcholine Chloride 20 MG/ML 10 ml SYRINGE FS ONE (14:22)
[2018-01-27] MEDS ORDERED: Lidocaine 1% PF 5 ML VIAL ONE (14:22)
[2018-01-27] MEDS ORDERED: Acetaminophen/Codeine 30-300mg Tablet PO PRN (16:30)
--- NOTE | 2018-01-27 16:38 | OP ---
ELECTROPHYSIOLOGY STUDY AND RADIOFREQUENCY ABLATION REPORT REFERRING PHYSICIAN: Zaid Gilbert M.D. REASON FOR PROCEDURE: Mr. Cordova is a 67-year-old man with history of T-cell lymphoma, also found to be newly found atrial flutter, significant fatigue, tiredness, albeit with controlled ventricular rates. He is here for ablation procedure of his atrial flutter. A AGA prior to the procedure demonstrated no intracardiac clots. PROCEDURE IN DETAIL: The patient received propofol by Anesthesia specialist and general anesthesia was performed. The right femoral venous area was prepped , draped and anesthetized using subcutaneous lidocaine with ultrasound guidance , the right femoral vein was accessed x2 and two 8 English short sheaths were introduced. With a Decapolar CS catheter was advanced to first to the right ventricular, right atrium, His bundle and eventually CS position, pacing mapping and recording were performed in each location. The following findings were seen. The baseline rhythm was atrial flutter, appears to be typical isthmus-dependent with a cycle length 235 milliseconds. Overdrive pacing and CS distal location via did longer post-pacing interval was then in a CS proximal position suggestive of right atrial flutter. The radiofrequency ablation of the cavotricuspid isthmus terminated the atrial flutter. Following that, a proximal CS pacing was performed and repeat 3D maps were obtained with the help of the Carto system and further ablation was performed on the cavotricuspid isthmus line to increase the transisthmus time over 150 milliseconds from baseline of 40 milliseconds. Once this was achieved, the baseline EP study was performed. The sinus node recovery time of 1554 with corrected sinus node recovery time was 640 milliseconds. The AV Wenckebach cycle was 480 milliseconds. No VA conduction was seen. AV node ERP was measured to be 600/380 milliseconds without evidence of dual AV guzman physiology present. Burst atrial pacing did not demonstrate any further arrhythmias. Dopamine was administered at this point and the patency of the isthmus line was rechecked. Cine images pre and post-ablation demonstrates no change in cardiac silhouette. The patient tolerated the procedure well and was extubated in the supervisor dental laboratory and the sheaths were pulled. Total number of ablation delivered:10 with ablation time of 8 mi. Average power was 40 whipple, max temperature of 34, average 22 Celsius. CONCLUSION: 1. Typical cavotricuspid isthmus dependent atrial flutter at baseline, which was successfully terminated with cavotricuspid isthmus ablation. 2. Prolongation of the transisthmus time from 40 milliseconds to 150 milliseconds with evidence of unilateral block demonstrated by the longest transisthmus time at the ablation line. 3. Sinus node disease with prolong sinus node recovery time. 4. Borderline HV interval 58 milliseconds and a somewhat low AV Wenckebach at 480 milliseconds is seen suggestive of mild AV guzman dysfunction. PLAN: Routine postoperative care. Consider 1 month of anticoagulation. MTDD
[2018-01-27] MEDS: cefTRIAXone\\ROCEPHIN 1 GM in Sodium Chloride 0.9% 100 ML IVPB SCH (17:43)
--- NOTE | 2018-01-27 17:51 | ECHO ---
REASON FOR PROCEDURES: The patient is a 67-year-old male with a prior history of lymphoma who presented with atrial flutter and sent here for AGA to rule out intracardiac clots and suboptimal anticoagulation prior to admissi on and to proceed with ablation if no clots are seen. PROCEDURE: The patient received general anesthesia by Anesthesia specialist. After adequate level of sedation a chieved, a standard transesophageal echocardiogram probe was passed into the esophagus without diffic ulty. Patient tolerated procedure well, no complication noted. RESULTS: The left atrium is upper normal in size about 4 cm in horizontal diameter. Four out of four pulmonar y veins were seen. A very large right superior pulmonary vein is noted more likely inferior is seen. The interatrial septum is an intraventricular septum is free of defect. Left atrial appendage well visualized contains no clots and very mobile. The mitral valve is without regurgitation or stenosis. The tricuspid valve with mild regurgitation. Aortic valve has three leaflets without regurgitation or stenosis. Pulmonary valve nonregurgitant. The pericardial space is without significant effusion. The left ventricular function is preserved. Cavity sizes are normal. Borderline LVH is noted. The v isualized portion of the ascending and descending aortic without aneurysm, dissection or atheroma. CONCLUSION: 1. No intracardiac clots. 2. Normal LV function. 3. Upper limit normal left atrial size. 4. Mild mitral regurgitation only. No other valvular heart disease. 5. Central indwelling catheter via right in the superior vena cava.
[2018-01-27] MEDS: Lidocaine Viscous Sol 2% 15 ml UD Cup SSP PRN (17:57)
[2018-01-27] MEDS ORDERED: Sodium Chloride 0.9% 1,000 ML IV SCH (20:30)
[2018-01-27] MEDS: Latanoprost 0.005% Ophth Soln 2.5 ml Bottle EA EYE SCH (20:39)
--- NOTE | 2018-01-27 21:04 | PDOC.PN ---
- Subjective Encounter Start Date: 01/27/18 Encounter Start Time: 17:00 Patient seen and examined for gen weakness/Aflutter. s/p Ablation of A flutter. No new complaints. No overnight events - Objective Resuscitation Status: Resuscitation Status FULL:Full Resuscitation MAR Reviewed: Yes Vital Signs & Weight: Vital Signs (12 hours) Temp Pulse Resp BP BP Pulse Ox 01/27/18 20:39 89 90/52 L 01/27/18 16:40 98.7 F 89 24 H 91/65 98 01/27/18 11:53 63 Weight Admit Weight 358 lb 6.4 oz Weight 367 lb 11.2 oz I&O: 01/26/18 01/27/18 01/28/18 06:59 06:59 06:59 Intake Total 2452 3070 800 Output Total 350 600 785 Balance 2102 4200 15 Result Diagrams: 01/28/18 04:07 01/28/18 04:07 EKG Reviewed by me: Yes (Tele SR) Phys Exam - Physical Examination Constitutional: NAD Respiratory: no wheezing, no rhonchi Cardiovascular: RRR, no rub Gastrointestinal: soft, non-tender, positive bowel sounds Musculoskeletal: no edema Neurological: moves all 4 limbs Dx/Plan - Plan continue antibiotics, DVT proph w/lovenox, DVT proph w/SCDs IMPRESSION/PLAN: 1. Generalized weakness, multifactorial. 2. New onset Atrial flutter/Elevated troponins s/p AGA/Ablation DC Metoprolol due to hypotension Cont low dose ASA Cont Anticoag for stroke prophylaxis 3. HTN As above 4. Metabolic acidosis/lactic acidosis due to Lymphoma/Starvation ketosis/ Dehydration VBG reviewed Cont bicarb drip Lactic acidosis in AM Blood and urine cultures negative Cont Atbx 5. Large B cell lymphoma Plan for Chemo this admission 6. Swallow dysfunction due to neck lymphadenopathy Cont Full liqd diet with local analgesics Review of Systems - Review of Systems Respiratory: negative: Cough, Dry, Shortness of Breath, Hemoptysis, SOB with Excertion, Pleuritic Pain, Sputum, Wheezing Cardiovascular: negative: chest pain, palpitations, orthopnea, paroxysmal nocturnal dyspnea, edema, light headedness, other - Medications/Allergies Allergies/Adverse Reactions: Allergies Allergy/AdvReac Type Severity Reaction Status Date / Time fluoxetine Allergy swelling Verified 12/26/17 14:37 morphine Allergy Verified 12/26/17 14:36 Penicillins Allergy Verified 12/26/17 14:36 Medications: Current Medications Acetaminophen (Tylenol) 650 mg PO Q4H PRN PRN Reason: Headache/Fever or Pain Acetaminophen/Codeine Phosphate (Tylenol #3) 1 tab PO Q4H PRN PRN Reason: Mild Pain (1-3) Acetaminophen/Codeine Phosphate (Tylenol #3) 2 tab PO Q4H PRN PRN Reason: Moderate Pain (4-6) Last Admin: 01/27/18 17:47 Dose: 2 tab Al Hydroxide/Mg Hydroxide (Maalox) 30 ml PO Q6H PRN PRN Reason: Heartburn or Indigestion Allopurinol (Zyloprim) 300 mg PO BID [facility] Last Admin: 01/27/18 20:38 Dose: 300 mg Aspirin (Ecotrin) 81 mg PO DAILY [facility] Last Admin: 01/27/18 11:52 Dose: Not Given Calcium Carbonate (Tums) 1,000 mg PO Q4H PRN PRN Reason: Heartburn or Indigestion Diltiazem HCl (Cardizem) 30 mg PO Q6HR PRN PRN Reason: HR >120 sustained Docusate Sodium (Colace) 100 mg PO BID [facility] Last Admin: 01/27/18 20:38 Dose: Not Given Enoxaparin Sodium (Lovenox) 100 mg SC 0900,2100 [facility] Last Admin: 01/27/18 20:38 Dose: 100 mg Famotidine (Pepcid) 20 mg PO BID [facility] Last Admin: 01/27/18 20:38 Dose: 20 mg Ceftriaxone Sodium 1 gm/ (Sodium Chloride) 100 mls @ 200 mls/hr IVPB Q24HR [facility] Last Admin: 01/27/18 17:43 Dose: 100 mls Sodium Bicarbonate 50 meq/ (Sodium Chloride) 1,050 mls @ 100 mls/hr IV .[id number] [facility] Last Admin: 01/27/18 17:42 Dose: 1,050 mls Sodium Chloride (Normal Saline 0.9%) 1,000 mls @ 0 mls/hr IV .Q0M [facility] PRN Reason: As Directed Stop: 01/27/18 22:30 Last Admin: 01/27/18 20:37 Dose: 1,000 mls Latanoprost (Xalatan 0.005% Oph Soln) 1 drop EA EYE HS [facility] Last Admin: 01/27/18 20:39 Dose: 1 drp Lidocaine HCl (Xylocaine 2% Viscous) 15 ml SSP Q4HR PRN PRN Reason: SORE THROAT Last Admin: 01/27/18 17:57 Dose: 15 ml Magnesium Hydroxide (Milk Of Magnesium) 30 ml PO DAILYPRN PRN PRN Reason: Constipation Metoprolol Tartrate (Lopressor) 12.5 mg PO BID [facility] Last Admin: 01/27/18 20:39 Dose: Not Given Metronidazole (Flagyl) 500 mg PO TID [facility] Last Admin: 01/27/18 20:38 Dose: 500 mg Nitroglycerin (Nitrostat) 0.4 mg PO Q5MIN PRN PRN Reason: Chest Pain Ondansetron HCl (Zofran Odt) 4 mg PO Q6H PRN PRN Reason: Nausea/Vomiting Ondansetron HCl (Zofran) 4 mg IVP Q6H PRN PRN Reason: Nausea/Vomiting Phenol (Chloraseptic [place] 180 Ml Bot) 0 ml PO BIDPRN PRN PRN Reason: Sore Throat Senna (Senokot) 2 tab PO HSPRN PRN PRN Reason: Constipation Sodium Chloride (Flush - Normal Saline) 10 ml IVF PRN PRN PRN Reason: Saline Flush Sodium Chloride (Flush - Normal Saline) 10 ml IVF PRN PRN PRN Reason: Saline Flush Timolol Maleate (Timoptic 0.5% Ophth Soln) 1 drop L EYE BID [facility] Last Admin: 01/27/18 20:39 Dose: Not Given
[2018-01-27 21:25] LABS: Hemoglobin 10.5 g/dL (14.0-18.0)
[2018-01-28] MEDS: Sodium Bicarbonate 50 MEQ in Sodium Chloride 0.45% 1,000 ML IV SCH ×2 (01:55→13:22)
[2018-01-28 04:54] LABS: Lactic Acid 11.3 mmol/L (0.5-2.2)
[2018-01-28 05:00] LABS: Anion Gap 25 mmol/L (10-20); BUN (Urea Nitrogen) 31 mg/dL (8.4-25.7); Calc. Creatinine Clearance 116 mL/min (70-130); Calcium 8.8 mg/dL (7.8-10.44); Carbon Dioxide 12 mmol/L (23-31); Chloride 103 mmol/L (98-107); Estimated GFR-MDRD 59; Glucose 90 mg/dL (80-115); Magnesium 2.2 mg/dL (1.6-2.6); Potassium 4.9 mmol/L (3.5-5.1); Sodium 135 mmol/L (136-145); Uric Acid 16.2 mg/dL (3.5-7.2)
[2018-01-28] MEDS: Lidocaine Viscous Sol 2% 15 ml UD Cup SSP PRN (06:06)
[2018-01-28 06:45] LABS: Band 8 % (5-11); Eosinophils 2 % (0-10); Hemoglobin 10.3 g/dL (14.0-18.0); Lymphocytes 11 % (21-51); MDiff Complete? YES; Mean Corpuscular HGB CONC 32.1 g/dL (32.0-36.0); Mean Corpuscular Hemoglobin 27.3 pg (27.0-31.0); Mean Corpuscular Volume 85.1 fL (78.0-98.0); Mean Platelet Volume 6.8 fL (7.4-10.4); Monocytes 17 % (0-10); Neutrophil 62 % (42-75); Platelet Count 279 thou/uL (130-400); RBC Distribution Width 15.5 % (11.5-14.5); Red Blood Cell (RBC) Count 3.76 mill/uL (4.70-6.10); White Blood Cell (WBC) Count 12.1 thou/uL (4.8-10.8)
[2018-01-28] MEDS: Aspirin 81 mg Enteric Coated Tablet PO SCH (09:12)
[2018-01-28] MEDS: Docusate 100 MG CAP PO SCH ×2 (09:12→21:03)
[2018-01-28] MEDS: Allopurinol 300 MG TAB PO SCH (09:12)
[2018-01-28] MEDS: metroNIDAZOLE 500 MG TAB PO SCH ×3 (09:13→21:05)
[2018-01-28] MEDS: Famotidine 20 MG TAB PO SCH ×2 (09:13→21:05)
[2018-01-28] MEDS: Timolol 0.5% Ophth Soln 5 ml Bottle L EYE SCH ×2 (09:23→21:06)
[2018-01-28] MEDS: Enoxaparin Sodium 100 MG/ML SYRINGE SC SCH ×2 (09:23→21:04)
--- NOTE | 2018-01-28 12:28 | PDOC.PN ---
- Subjective Encounter Start Date: 01/28/18 Encounter Start Time: 09:30 Patient seen and examined for Gen weakness/Lactic acidosis. Hypotensive. Some SOB on exertion. No new complaints. No overnight events - Objective Resuscitation Status: Resuscitation Status FULL:Full Resuscitation MAR Reviewed: Yes Vital Signs & Weight: Vital Signs (12 hours) Temp Pulse Resp BP Pulse Ox 01/28/18 11:34 98.0 F 77 24 H 81/61 L 97 01/28/18 09:23 85 01/28/18 08:11 98.3 F 85 16 95 01/28/18 07:24 98.3 F 85 16 91/55 L 01/28/18 04:00 97.7 F 87 16 94/60 95 Weight Admit Weight 358 lb 6.4 oz Weight 370 lb 9.6 oz I&O: 01/27/18 01/28/18 01/29/18 06:59 06:59 06:59 Intake Total 3070 3450 Output Total 600 1035 Balance 2470 2415 Result Diagrams: 01/28/18 04:07 01/28/18 04:07 Phys Exam - Physical Examination Constitutional: NAD Neck: no JVD Respiratory: no wheezing, no rhonchi Few bibasilar rales, Mild accessory muscle use Cardiovascular: RRR, no rub no heaves/pulsations Gastrointestinal: soft, non-tender, positive bowel sounds Obese Musculoskeletal: no edema, pulses present, edema present (1 +) Neurological: non-focal, normal sensation, moves all 4 limbs Psychiatric: normal affect, A&O x 3 Dx/Plan - Plan DVT proph w/SCDs IMPRESSION/PLAN: 1. Generalized weakness, multifactorial. 2. New onset Atrial flutter/Elevated troponins s/p AGA/Ablation Cont low dose ASA Cont Anticoag for stroke prophylaxis 3. HTN As above Pt is hypotensive - will check Cortisol level in AM 4. MARCO ANTONIO - multifactorial AM labs Cont IVF Reduce Allopurinol dose 4. Metabolic acidosis/lactic acidosis due to Lymphoma/Starvation ketosis/ Dehydration VBG reviewed Cont bicarb drip Lactic acidosis in AM Blood and urine cultures negative Cont Atbx 5. Large B cell lymphoma Plan for Chemo this admission Reduce Allopurinol due to MARCO ANTONIO 6. Swallow dysfunction due to neck lymphadenopathy Cont Full liqd diet with local analgesics Review of Systems - Review of Systems Respiratory: negative: Cough, Dry, Shortness of Breath, Hemoptysis, SOB with Excertion, Pleuritic Pain, Sputum, Wheezing Cardiovascular: negative: chest pain, palpitations, orthopnea, paroxysmal nocturnal dyspnea, edema, light headedness, other - Medications/Allergies Allergies/Adverse Reactions: Allergies Allergy/AdvReac Type Severity Reaction Status Date / Time fluoxetine Allergy swelling Verified 12/26/17 14:37 morphine Allergy Verified 12/26/17 14:36 Penicillins Allergy Verified 12/26/17 14:36 Medications: Current Medications Acetaminophen (Tylenol) 650 mg PO Q4H PRN PRN Reason: Headache/Fever or Pain Acetaminophen/Codeine Phosphate (Tylenol #3) 1 tab PO Q4H PRN PRN Reason: Mild Pain (1-3) Al Hydroxide/Mg Hydroxide (Maalox) 30 ml PO Q6H PRN PRN Reason: Heartburn or Indigestion Aspirin (Ecotrin) 81 mg PO DAILY [facility] Last Admin: 01/28/18 09:12 Dose: 81 mg Calcium Carbonate (Tums) 1,000 mg PO Q4H PRN PRN Reason: Heartburn or Indigestion Diltiazem HCl (Cardizem) 30 mg PO Q6HR PRN PRN Reason: HR >120 sustained Docusate Sodium (Colace) 100 mg PO BID [facility] Last Admin: 01/28/18 09:12 Dose: 100 mg Enoxaparin Sodium (Lovenox) 100 mg SC 0900,2100 [facility] Last Admin: 01/28/18 09:23 Dose: 100 mg Famotidine (Pepcid) 20 mg PO BID [facility] Last Admin: 01/28/18 09:13 Dose: 20 mg Ceftriaxone Sodium 1 gm/ (Sodium Chloride) 100 mls @ 200 mls/hr IVPB Q24HR [facility] Last Admin: 01/27/18 17:43 Dose: 100 mls Sodium Bicarbonate 50 meq/ (Sodium Chloride) 1,050 mls @ 100 mls/hr IV .[id number] [facility] Last Admin: 01/28/18 01:55 Dose: 1,050 mls Latanoprost (Xalatan 0.005% Ophth Soln) 1 drop EA EYE HS [facility] Last Admin: 01/27/18 20:39 Dose: 1 drp Lidocaine HCl (Xylocaine 2% Viscous) 15 ml SSP Q4HR PRN PRN Reason: SORE THROAT Last Admin: 01/28/18 06:06 Dose: 15 ml Magnesium Hydroxide (Milk Of Magnesium) 30 ml PO DAILYPRN PRN PRN Reason: Constipation Metronidazole (Flagyl) 500 mg PO TID [facility] Last Admin: 01/28/18 09:13 Dose: 500 mg Nitroglycerin (Nitrostat) 0.4 mg PO Q5MIN PRN PRN Reason: Chest Pain Ondansetron HCl (Zofran Odt) 4 mg PO Q6H PRN PRN Reason: Nausea/Vomiting Ondansetron HCl (Zofran) 4 mg IVP Q6H PRN PRN Reason: Nausea/Vomiting Phenol (Chloraseptic [place] 180 Ml Bot) 0 ml PO BIDPRN PRN PRN Reason: Sore Throat Senna (Senokot) 2 tab PO HSPRN PRN PRN Reason: Constipation Sodium Chloride (Flush - Normal Saline) 10 ml IVF PRN PRN PRN Reason: Saline Flush Sodium Chloride (Flush - Normal Saline) 10 ml IVF PRN PRN PRN Reason: Saline Flush Timolol Maleate (Timoptic 0.5% [facility]) 1 drop L EYE BID [facility] Last Admin: 01/28/18 09:23 Dose: 1 drp
[2018-01-28] MEDS ORDERED: RASBURICASE FS SCH (13:00)
--- NOTE | 2018-01-28 13:44 | RAD ---
RADIOGRAPH CHEST 1 VIEW: Date: 01/28/18 Time: 1158 hours HISTORY: 67-year-old male with dyspnea. FINDINGS: There are no air space densities, pulmonary edema, pneumothorax, or cardiomegaly. The lateral costop hrenic angles are sharp. There is a right subclavian implantable vascular access port with distal tip overlying the SVC/right atrial junction. The only interval change compared to 12/30/17 is a small focus of subsegmental atele ctasis or scar at the right base on the current study. IMPRESSION: 1. No acute cardiopulmonary findings. 2. Right-sided implantable vascular access port. du davey POS: SHANA
[2018-01-28] MEDS: Sodium Bicarbonate 150 MEQ in Dextrose 5% in Water 1,000 ML IV SCH ×2 (14:22→21:03)
[2018-01-28] MEDS: cefTRIAXone\\ROCEPHIN 1 GM in Sodium Chloride 0.9% 100 ML IVPB SCH (14:27)
[2018-01-28] MEDS: Acetaminophen/Codeine 30-300mg Tablet PO PRN (14:27)
[2018-01-28] MEDS: Allopurinol 100 MG TAB PO SCH (21:03)
[2018-01-28] MEDS: Latanoprost 0.005% Ophth Soln 2.5 ml Bottle EA EYE SCH (21:06)
--- NOTE | 2018-01-29 00:52 | CON ---
DATE OF CONSULTATION: 01/28/2018 Mr. Cordova is a 67-year-old male, recently diagnosed with lymphoma. His lactic acidosis and hyperuricemia are felt to be secondary to the lymphoma. He has been admitted to the Intermediate Care Unit for further care. PAST MEDICAL HISTORY: Remarkable for hypertension, history of diastolic cardiomyopathy, lipid disorder, glaucoma, MediPort placement, knee arthroscopy in the past. SOCIAL HISTORY: Nonsmoker, nondrinker, does not use drugs. ALLERGIES: Reports allergies to PENICILLIN, MORPHINE, and FLUOXETINE. MEDICATIONS: He is on aspirin, Lasix, hydralazine, lisinopril, Procardia, simvastatin, atenolol, latanoprost eye drops, and Zocor prior to admission. FAMILY HISTORY: Negative for lung disease in early age. REVIEW OF SYSTEMS: A 10-point system review completed, otherwise negative. PHYSICAL EXAMINATION: GENERAL: a 67-year-old male, recently diagnosed with lymphoma VITAL SIGNS: Afebrile, heart rate 69, respiratory rate is 21, oximetry is 96 on room air, blood pressure 100/62. HEENT: Pupils are equal. Sclerae is anicteric. NECK: Supple. LUNGS: Clear. HEART: Regular rhythm. S1 and S2 are normal. ABDOMEN: Soft and nontender. EXTREMITIES: Without clubbing, cyanosis, or edema. LABORATORY DATA: White count 12.1, hemoglobin 10.3, platelets 279,000. Sodium 135, potassium 4.9, chloride 103, bicarbonate 12, BUN 31, creatinine 1.44. Lactate level is 11. Uric acid level is 16; it was 18 yesterday. His bicarbonate drip has been adjusted today, after my discussion with Dr. Jaramillo. His uric acid is being treated. Dr. Jaramillo as stated did treat his lymphoma until his uric acid level was lower to avoid a tumor lysis syndrome. I will be happy to follow with the other physician's caring for him. This is a 50-minute consult with greater than 50% of the time was spent coordinating care on the unit. NIRANJAN
[2018-01-29 04:38] LABS: Anion Gap 25 mmol/L (10-20); BUN (Urea Nitrogen) 32 mg/dL (8.4-25.7); Calc. Creatinine Clearance 103 mL/min (70-130); Calcium 8.9 mg/dL (7.8-10.44); Carbon Dioxide 15 mmol/L (23-31); Chloride 99 mmol/L (98-107); Estimated GFR-MDRD 51; Glucose 76 mg/dL (80-115); Magnesium 2.3 mg/dL (1.6-2.6); Phosphorus 3.1 mg/dL (2.3-4.7); Potassium 4.8 mmol/L (3.5-5.1); Sodium 134 mmol/L (136-145); Uric Acid 15.3 mg/dL (3.5-7.2)
[2018-01-29 05:24] LABS: Anisocytosis SLIGHT = 6-15 cells (100X) (0-5/hpf); Band 17 % (5-11); Eosinophils 2 % (0-10); Hemoglobin 10.1 g/dL (14.0-18.0); Hypochromia SLIGHT = 6-15 cells (100X) (0-5/hpf); Lymphocytes 14 % (21-51); MDiff Complete? YES; Mean Corpuscular HGB CONC 30.7 g/dL (32.0-36.0); Mean Corpuscular Hemoglobin 26.6 pg (27.0-31.0); Mean Corpuscular Volume 86.8 fL (78.0-98.0); Mean Platelet Volume 7.3 fL (7.4-10.4); Monocytes 19 % (0-10); Neutrophil 47 % (42-75); PLT Morphology Comment Appears Adequate; Platelet Count 282 thou/uL (130-400); Polychromasia SLIGHT = 2-3 cells (100X) (0-2/hpf); RBC Distribution Width 15.8 % (11.5-14.5); Reactive Lymphocytes 1 % (0-10); Red Blood Cell (RBC) Count 3.78 mill/uL (4.70-6.10); White Blood Cell (WBC) Count 12.9 thou/uL (4.8-10.8)
[2018-01-29] MEDS: Lidocaine Viscous Sol 2% 15 ml UD Cup SSP PRN (06:01)
[2018-01-29] MEDS ORDERED: Sodium Chloride 0.9% 50 ML IVPB SCH (09:45)
[2018-01-29] MEDS: Aspirin 81 mg Enteric Coated Tablet PO SCH (10:02)
[2018-01-29] MEDS: Famotidine 20 MG TAB PO SCH ×2 (10:03→20:12)
[2018-01-29] MEDS: metroNIDAZOLE 500 MG TAB PO SCH ×3 (10:03→20:12)
[2018-01-29] MEDS: Enoxaparin Sodium 100 MG/ML SYRINGE SC SCH ×2 (10:03→20:12)
[2018-01-29] MEDS: Docusate 100 MG CAP PO SCH ×2 (10:03→20:12)
[2018-01-29] MEDS: Timolol 0.5% Ophth Soln 5 ml Bottle L EYE SCH ×2 (10:04→20:04)
[2018-01-29] MEDS: Sodium Bicarbonate 150 MEQ in Dextrose 5% in Water 1,000 ML IV SCH ×2 (10:06→19:59)
[2018-01-29] MEDS: Allopurinol 100 MG TAB PO SCH (10:18)
[2018-01-29] MEDS: cefTRIAXone\\ROCEPHIN 1 GM in Sodium Chloride 0.9% 100 ML IVPB SCH (14:48)
--- NOTE | 2018-01-29 16:38 | PDOC.PN ---
- Subjective Encounter Start Date: 01/29/18 Encounter Start Time: 10:30 Patient seen and examined for Multiple medical problems. No new complaints. No overnight events - Objective Resuscitation Status: Resuscitation Status FULL:Full Resuscitation MAR Reviewed: Yes Vital Signs & Weight: Vital Signs (12 hours) Temp Pulse Resp BP Pulse Ox 01/29/18 15:27 98.0 F 86 20 119/67 92 L 01/29/18 11:16 97.8 F 88 24 H 102/63 95 01/29/18 10:04 107 H 01/29/18 07:51 97.8 F 88 24 H 95 01/29/18 07:28 98.4 F 107 H 18 100/67 97 Weight Admit Weight 358 lb 6.4 oz Weight 374 lb 9.6 oz I&O: 01/28/18 01/29/18 01/30/18 06:59 06:59 06:59 Intake Total 3450 1800 480 Output Total 1035 795 Balance 2415 1005 480 Result Diagrams: 01/29/18 03:28 01/29/18 03:28 EKG Reviewed by me: Yes (Tele SR with intermittent A flutter) Phys Exam - Physical Examination Constitutional: NAD Respiratory: no wheezing, no rhonchi Cardiovascular: RRR, no rub Gastrointestinal: soft, non-tender, positive bowel sounds Musculoskeletal: no edema Neurological: moves all 4 limbs Dx/Plan - Plan DVT proph w/SCDs IMPRESSION/PLAN: 1. Generalized weakness, multifactorial. 2. New onset Atrial flutter/Elevated troponins s/p AGA/Ablation Cont low dose ASA with Anticoag for stroke prophylaxis I d/w Dr Gilbert that patient has intermittent A flutter - Dr Gilbert recommended to continue to monitor. Anticoag for atleast [address] Gilbert 3. HTN As above Home meds on hold due to BP on lower side 4. MARCO ANTONIO - multifactorial AM labs Cont IVF 4. Metabolic acidosis/lactic acidosis due to Lymphoma/Starvation ketosis/ Dehydration Cont bicarb drip Lactic acidosis in AM Cont Atbx 5. Large B cell lymphoma with hyperuricemia Plan for Chemo this admission Started on Rasburicase 6. Swallow dysfunction due to neck lymphadenopathy Cont Full liqd diet with local analgesics Review of Systems - Review of Systems Respiratory: negative: Cough, Dry, Shortness of Breath, Hemoptysis, SOB with Excertion, Pleuritic Pain, Sputum, Wheezing Cardiovascular: negative: chest pain, palpitations, orthopnea, paroxysmal nocturnal dyspnea, edema, light headedness, other - Medications/Allergies Allergies/Adverse Reactions: Allergies Allergy/AdvReac Type Severity Reaction Status Date / Time fluoxetine Allergy swelling Verified 12/26/17 14:37 morphine Allergy Verified 12/26/17 14:36 Penicillins Allergy Verified 12/26/17 14:36 Medications: Current Medications Acetaminophen (Tylenol) 650 mg PO Q4H PRN PRN Reason: Headache/Fever or Pain Acetaminophen/Codeine Phosphate (Tylenol #3) 1 tab PO Q4H PRN PRN Reason: Mild Pain (1-3) Last Admin: 01/28/18 14:27 Dose: 1 tab Al Hydroxide/Mg Hydroxide (Maalox) 30 ml PO Q6H PRN PRN Reason: Heartburn or Indigestion Aspirin (Ecotrin) 81 mg PO DAILY [facility] Last Admin: 01/29/18 10:02 Dose: 81 mg Calcium Carbonate (Tums) 1,000 mg PO Q4H PRN PRN Reason: Heartburn or Indigestion Diltiazem HCl (Cardizem) 30 mg PO Q6HR PRN PRN Reason: HR >120 sustained Docusate Sodium (Colace) 100 mg PO BID [facility] Last Admin: 01/29/18 10:03 Dose: 100 mg Enoxaparin Sodium (Lovenox) 100 mg SC 0900,2100 [facility] Last Admin: 01/29/18 10:03 Dose: 100 mg Famotidine (Pepcid) 20 mg PO BID [facility] Last Admin: 01/29/18 10:03 Dose: 20 mg Ceftriaxone Sodium 1 gm/ (Sodium Chloride) 100 mls @ 200 mls/hr IVPB Q24HR [facility] Last Admin: 01/29/18 14:48 Dose: 100 mls Sodium Bicarbonate 150 meq/ (Dextrose/Water) 1,150 mls @ 150 mls/hr IV .Q7H40M [facility] Last Admin: 01/29/18 10:06 Dose: 1,150 mls Latanoprost (Xalatan 0.005% Ophth Soln) 1 drop EA EYE HS [facility] Last Admin: 01/28/18 21:06 Dose: 1 drp Lidocaine HCl (Xylocaine 2% Viscous) 15 ml SSP Q4HR PRN PRN Reason: SORE THROAT Last Admin: 01/27/18 17:57 Dose: 15 ml Magnesium Hydroxide (Milk Of Magnesium) 30 ml PO DAILYPRN PRN PRN Reason: Constipation Metronidazole (Flagyl) 500 mg PO TID [facility] Last Admin: 01/29/18 14:48 Dose: 500 mg Nitroglycerin (Nitrostat) 0.4 mg PO Q5MIN PRN PRN Reason: Chest Pain Ondansetron HCl (Zofran Odt) 4 mg PO Q6H PRN PRN Reason: Nausea/Vomiting Ondansetron HCl (Zofran) 4 mg IVP Q6H PRN PRN Reason: Nausea/Vomiting Phenol (Chloraseptic [place] 180 Ml Bot) 0 ml PO BIDPRN PRN PRN Reason: Sore Throat Senna (Senokot) 2 tab PO HSPRN PRN PRN Reason: Constipation Sodium Chloride (Flush - Normal Saline) 10 ml IVF PRN PRN PRN Reason: Saline Flush Sodium Chloride (Flush - Normal Saline) 10 ml IVF PRN PRN PRN Reason: Saline Flush Timolol Maleate (Timoptic 0.5% [facility]) 1 drop L EYE BID [facility] Last Admin: 01/29/18 10:04 Dose: 1 drp
--- NOTE | 2018-01-29 18:43 | PRG ---
DATE OF SERVICE: 01/29/2018 SUBJECTIVE: Babak Cordova has no complaints. He looks uncomfortable, just like yesterday, but no wor se. OBJECTIVE: VITAL SIGNS: He is afebrile, heart rate 86, respiratory rate 20, oximetry is 92 on room air, blood p ressure 119/67. LUNGS: Clear. HEART: Regular rhythm. ABDOMEN: Soft. EXTREMITIES: Without asymmetry. IMPRESSION: Lymphoma with hyperuricemia and lactic acidosis. He is stable to move out of the [facility] unit. Atrial flutter seen by Electrophysiology: Hypertension. Dr. Jaramillo very concerned about his hyperuricemia, wants to continue to treat this prior to starting his lymphoma therapy. He is tentatively to go down to the Oncology unit.
[2018-01-29] MEDS: Latanoprost 0.005% Ophth Soln 2.5 ml Bottle EA EYE SCH (20:04)
[2018-01-29] MEDS: Acetaminophen 325 MG TAB PO PRN (21:11)
[2018-01-30] MEDS: Sodium Bicarbonate 150 MEQ in Dextrose 5% in Water 1,000 ML IV SCH ×5 (01:26→22:14)
[2018-01-30 06:06] LABS: Anion Gap 30 mmol/L (10-20); BUN (Urea Nitrogen) 35 mg/dL (8.4-25.7); Calc. Creatinine Clearance 143 mL/min (70-130); Calcium 9.2 mg/dL (7.8-10.44); Carbon Dioxide 14 mmol/L (23-31); Chloride 98 mmol/L (98-107); Estimated GFR-MDRD 74; Glucose 74 mg/dL (80-115); Magnesium 2.3 mg/dL (1.6-2.6); Phosphorus 2.4 mg/dL (2.3-4.7); Potassium 4.9 mmol/L (3.5-5.1); Sodium 137 mmol/L (136-145); Uric Acid 11.9 mg/dL (3.5-7.2)
[2018-01-30 06:15] LABS: Band 8 % (5-11); Eosinophils 1 % (0-10); Lymphocytes 11 % (21-51); MDiff Complete? YES; Mean Corpuscular HGB CONC 31.1 g/dL (32.0-36.0); Mean Corpuscular Hemoglobin 26.6 pg (27.0-31.0); Mean Corpuscular Volume 85.4 fL (78.0-98.0); Mean Platelet Volume 7.6 fL (7.4-10.4); Monocytes 15 % (0-10); Neutrophil 65 % (42-75); Platelet Count 308 thou/uL (130-400); RBC Distribution Width 16.2 % (11.5-14.5); Red Blood Cell (RBC) Count 3.76 mill/uL (4.70-6.10); White Blood Cell (WBC) Count 13.9 thou/uL (4.8-10.8)
[2018-01-30 06:21] LABS: Critical Call Chem-Lactate NUR.FCL@0620; Lactic Acid 15.7 mmol/L (0.5-2.2)
[2018-01-30] MEDS: metroNIDAZOLE 500 MG TAB PO SCH ×3 (08:57→20:49)
[2018-01-30] MEDS: Enoxaparin Sodium 100 MG/ML SYRINGE SC SCH ×2 (08:58→20:49)
[2018-01-30] MEDS: Aspirin 81 mg Enteric Coated Tablet PO SCH (08:58)
[2018-01-30] MEDS: Docusate 100 MG CAP PO SCH (08:58)
[2018-01-30] MEDS: Famotidine 20 MG TAB PO SCH ×2 (08:58→20:49)
[2018-01-30] MEDS: Timolol 0.5% Ophth Soln 5 ml Bottle L EYE SCH ×2 (08:58→20:55)
[2018-01-30] MEDS ORDERED: RASBURICASE IVP SCH (13:15)
[2018-01-30] MEDS ORDERED: Rasburicase 3 MG in Sodium Chloride 0.9% 50 ML IVPB SCH (14:00)
[2018-01-30] MEDS: cefTRIAXone\\ROCEPHIN 1 GM in Sodium Chloride 0.9% 100 ML IVPB SCH (15:55)
--- NOTE | 2018-01-30 16:47 | PRG ---
DATE OF SERVICE: 01/30/2018 ELECTROPHYSIOLOGY FOLLOWUP NOTE SUBJECTIVE: Mr. Cordova seems to be doing fair. Still extremely fatigued. He remained stable over the weekend as we moved to the Oncology floor. On Tuesday, he developed atrial flutter/coarse fibrillation. The flutter waves are not typical for isthmus dependent flutter like it was before, they spontaneously terminated. He was not symptomatic in this regard. OBJECTIVE: VITAL SIGNS: Blood pressure is 134/86, heart rate 88, temperature 98.5, respirations 24. GENERAL: He is alert, oriented, morbidly obese man in no apparent distress. NECK: Supple. Jugular veins not distended. CHEST: Coarse without crackles. CARDIOVASCULAR: Heart sounds are regular to rate and rhythm. No murmur or gallop. ABDOMEN: Benign. Bowel sounds positive. EXTREMITIES: Lower extremity without edema, clubbing or cyanosis. DATABASE: EKG is reviewed as noted above. ASSESSMENT AND PLAN: Mr. Cordova is a pleasant 67-year-old man with unfortunate lymphoma associated with severe hyperkalemia and lactic acidosis. His rhythm is stabilizing, but still had occurrence of [id number] atrial flutter /coarse fibrillation over the weekend, but it spontaneously terminated. He tolerated and recovered from the cavotricuspid isthmus ablation well. As I discussed with Dr. Joyce, at this point, we will continue to monitor his rhythms. If rhythm is sustaining atrial fibrillation which causes physical compromise, consideration for adding amiodarone therapy could be made. Monitoring closely of his liver function would benefit in that case, hence his baseline liver function tests are abnormal. At this point, I would sign off. Please call us if any further issues occur. JOSED
--- NOTE | 2018-01-30 19:14 | PDOC.PN ---
- Subjective Encounter Start Date: 01/30/18 Encounter Start Time: 08:30 Patient seen and examined for Gen weakness/lymphoma. No new complaints. No overnight events - Objective Resuscitation Status: Resuscitation Status FULL:Full Resuscitation MAR Reviewed: Yes Vital Signs & Weight: Vital Signs (12 hours) Temp Pulse Resp BP Pulse Ox 01/30/18 12:00 98.5 F 88 24 H 134/86 94 L 01/30/18 08:58 101 H 01/30/18 08:00 98.1 F 101 H 18 104/56 L 95 Weight Admit Weight 358 lb 6.4 oz Weight 374 lb 9.6 oz I&O: 01/29/18 01/30/18 01/31/18 06:59 06:59 06:59 Intake Total 1800 4605 2550 Output Total 795 1800 925 Balance 1005 2805 1625 Result Diagrams: 01/30/18 05:19 01/30/18 05:19 Phys Exam - Physical Examination Constitutional: NAD Respiratory: no wheezing, no rhonchi Cardiovascular: RRR, no rub Gastrointestinal: soft, non-tender, positive bowel sounds Musculoskeletal: no edema Neurological: moves all 4 limbs Dx/Plan - Plan IMPRESSION/PLAN: 1. Generalized weakness, multifactorial. 2. Large B cell lymphoma with hyperuricemia Plan for Chemo this admission on Rasburicase 3. HTN Home meds on hold due to BP on lower side 4. MARCO ANTONIO - multifactorial - improving AM labs Cont IVF 5. Metabolic acidosis/lactic acidosis due to Lymphoma/Starvation ketosis/ Dehydration Cont bicarb drip Lactic acidosis in AM Cont Atbx 6. New onset Atrial flutter/Elevated troponins s/p AGA/Ablation Cont low dose ASA with Anticoag for stroke prophylaxis Anticoag for atleast [address] Gilbert 7. Swallow dysfunction due to neck lymphadenopathy - improving Review of Systems - Review of Systems Respiratory: negative: Cough, Dry, Shortness of Breath, Hemoptysis, SOB with Excertion, Pleuritic Pain, Sputum, Wheezing Cardiovascular: negative: chest pain, palpitations, orthopnea, paroxysmal nocturnal dyspnea, edema, light headedness, other Gastrointestinal: Diarrhea. negative: Nausea, Vomiting, Abdominal Pain, Constipation, Melena, Hematochezia, Other - Medications/Allergies Allergies/Adverse Reactions: Allergies Allergy/AdvReac Type Severity Reaction Status Date / Time fluoxetine Allergy swelling Verified 12/26/17 14:37 morphine Allergy Verified 12/26/17 14:36 Penicillins Allergy Verified 12/26/17 14:36 Medications: Current Medications Acetaminophen (Tylenol) 650 mg PO Q4H PRN PRN Reason: Headache/Fever or Pain Last Admin: 01/29/18 21:11 Dose: 650 mg Acetaminophen/Codeine Phosphate (Tylenol #3) 1 tab PO Q4H PRN PRN Reason: Mild Pain (1-3) Last Admin: 01/28/18 14:27 Dose: 1 tab Al Hydroxide/Mg Hydroxide (Maalox) 30 ml PO Q6H PRN PRN Reason: Heartburn or Indigestion Albuterol/Ipratropium (Duoneb) 3 ml NEB [id number] GALE Albuterol/Ipratropium (Duoneb) 3 ml NEB [id number] PRN PRN Reason: SOB &/or Wheezing Aspirin (Ecotrin) 81 mg PO DAILY [facility] Last Admin: 01/30/18 08:58 Dose: 81 mg Calcium Carbonate (Tums) 1,000 mg PO Q4H PRN PRN Reason: Heartburn or Indigestion Diltiazem HCl (Cardizem) 30 mg PO Q6HR PRN PRN Reason: HR >120 sustained Enoxaparin Sodium (Lovenox) 100 mg SC 0900,2100 [facility] Last Admin: 01/30/18 08:58 Dose: 100 mg Famotidine (Pepcid) 20 mg PO BID [facility] Last Admin: 01/30/18 08:58 Dose: 20 mg Ceftriaxone Sodium 1 gm/ (Sodium Chloride) 100 mls @ 200 mls/hr IVPB Q24HR [facility] Last Admin: 01/30/18 15:55 Dose: 100 mls Sodium Bicarbonate 150 meq/ (Dextrose/Water) 1,150 mls @ 150 mls/hr IV .Q7H40M [facility] Last Admin: 01/30/18 13:43 Dose: 1,150 mls Rasburicase 3 mg/ Sodium (Chloride) 50 mls @ 100 mls/hr IVPB ONE [facility] Stop: 01/30/18 23:59 Last Admin: 01/30/18 15:15 Dose: 50 mls Latanoprost (Xalatan 0.005% Ophth Soln) 1 drop EA EYE HS [facility] Last Admin: 01/29/18 20:04 Dose: 1 drp Lidocaine HCl (Xylocaine 2% Viscous) 15 ml SSP Q4HR PRN PRN Reason: SORE THROAT Last Admin: 01/27/18 17:57 Dose: 15 ml Magnesium Hydroxide (Milk Of Magnesium) 30 ml PO DAILYPRN PRN PRN Reason: Constipation Metronidazole (Flagyl) 500 mg PO TID [facility] Last Admin: 01/30/18 15:51 Dose: 500 mg Nitroglycerin (Nitrostat) 0.4 mg PO Q5MIN PRN PRN Reason: Chest Pain Ondansetron HCl (Zofran Odt) 4 mg PO Q6H PRN PRN Reason: Nausea/Vomiting Ondansetron HCl (Zofran) 4 mg IVP Q6H PRN PRN Reason: Nausea/Vomiting Phenol (Chloraseptic [place] 180 Ml Bot) 0 ml PO BIDPRN PRN PRN Reason: Sore Throat Senna (Senokot) 2 tab PO HSPRN PRN PRN Reason: Constipation Sodium Chloride (Flush - Normal Saline) 10 ml IVF PRN PRN PRN Reason: Saline Flush Sodium Chloride (Flush - Normal Saline) 10 ml IVF PRN PRN PRN Reason: Saline Flush Timolol Maleate (Timoptic 0.5% [facility]) 1 drop L EYE BID [facility] Last Admin: 01/30/18 08:58 Dose: 1 drp
[2018-01-30] MEDS: Latanoprost 0.005% Ophth Soln 2.5 ml Bottle EA EYE SCH (20:55)
[2018-01-31] MEDS: Sodium Bicarbonate 150 MEQ in Dextrose 5% in Water 1,000 ML IV SCH ×3 (04:20→16:32)
[2018-01-31] MEDS ORDERED: Dextrose 5% in Water 1,000 ML IV PRN (06:13)
[2018-01-31] MEDS ORDERED: Dextrose 50% Abboject 50 ML SYRINGE IVP PRN (06:13)
[2018-01-31 07:22] LABS: Glucose 69 mg/dL (80-115)
[2018-01-31] MEDS: Famotidine 20 MG TAB PO SCH ×2 (08:18→20:27)
[2018-01-31] MEDS: metroNIDAZOLE 500 MG TAB PO SCH ×3 (08:19→20:26)
[2018-01-31] MEDS: Acetaminophen/Codeine 30-300mg Tablet PO PRN (08:19)
[2018-01-31] MEDS: Timolol 0.5% Ophth Soln 5 ml Bottle L EYE SCH ×2 (08:20→20:24)
[2018-01-31] MEDS: Aspirin 81 mg Enteric Coated Tablet PO SCH (08:20)
[2018-01-31 10:43] LABS: ALT (SGPT) 32 U/L (8-55); AST (SGOT) 74 U/L (5-34); Albumin 2.5 g/dL (3.4-4.8); Alkaline Phosphatase 173 U/L (40-150); Anion Gap 30 mmol/L (10-20); BUN (Urea Nitrogen) 35 mg/dL (8.4-25.7); Bilirubin, Total 2.5 mg/dL (0.2-1.2); Calc. Creatinine Clearance 179 mL/min (70-130); Calcium 9.2 mg/dL (7.8-10.44); Carbon Dioxide 18 mmol/L (23-31); Chloride 93 mmol/L (98-107); Estimated GFR-MDRD Greater than 90; Globulin 2.9 g/dL (2.4-3.5); Glucose 95 mg/dL (80-115); Phosphorus 2.6 mg/dL (2.3-4.7); Potassium 4.4 mmol/L (3.5-5.1); Protein, Total 5.4 g/dL (5.8-8.1); Sodium 137 mmol/L (136-145); Uric Acid 6.6 mg/dL (3.5-7.2)
[2018-01-31 10:51] LABS: Lactic Acid 16.8 mmol/L (0.5-2.2)
[2018-01-31] MEDS ORDERED: Furosemide 40 MG/4 ML VIAL SLOW IVP SCH (11:00)
[2018-01-31] MEDS: Enoxaparin Sodium 100 MG/ML SYRINGE SC SCH ×2 (11:10→20:27)
[2018-01-31 11:12] LABS: pH, Arterial 7.42 (7.35-7.45)
[2018-01-31 11:13] LABS: Actual Bicarbonate (HCO3a) 18.9 mEq/L (22-28); Base Excess (BEa) -4.9 mEq/L (-2.0 to +3.0); Calcium, Ionized 1.1 mmol/L (1.12-1.30); Hemoglobin (Hb) 8.4 g/dL (14.0-18.0); O2 Tension (PaO2) 80.1 mmHg (> 80.0); Puncture Site RRA
[2018-01-31 11:32] LABS: Hemoglobin 8.5 g/dL (14.0-18.0); Mean Corpuscular HGB CONC 31.5 g/dL (32.0-36.0); Mean Corpuscular Volume 85.6 fL (78.0-98.0); Mean Platelet Volume 7.2 fL (7.4-10.4); Platelet Count 348 thou/uL (130-400); Red Blood Cell (RBC) Count 3.16 mill/uL (4.70-6.10); White Blood Cell (WBC) Count 21.4 thou/uL (4.8-10.8)
[2018-01-31 11:43] LABS: Band 10 % (5-11); Blister Cells SLIGHT = 2-5 cells (100X) (0-1/hpf); Burr Cells SLIGHT = 2-5 cells (100X) (0-1/hpf); Eosinophils 2 % (0-10); Hypochromia SLIGHT = 6-15 cells (100X) (0-5/hpf); Lymphocytes 10 % (21-51); MDiff Complete? YES; Monocytes 13 % (0-10); Neutrophil 62 % (42-75); PLT Morphology Comment Appears Adequate; Polychromasia MODERATE = 3-4 cells (100X) (0-2/hpf); Schistocytes SLIGHT = 2-5 cells (100X) (0-1/hpf); Target Cells SLIGHT = 2-5 cells (100X) (0-1/hpf)
[2018-01-31 11:44] LABS: Metamyelocyte 1 % (0-0); Nucleated RBC 2 % (0)
--- NOTE | 2018-01-31 11:48 | PRG ---
DATE OF SERVICE: 01/31/2018 SUBJECTIVE: The patient is seen and examined at bedside. He is resting in a recumbent position in h is bed. He does not complain of any pain. He noticed increased swelling all over his body. The bundle tier and labeler is here to redraw the blood since the previous sample was obtained from the site where th e IV was. OBJECTIVE: VITAL SIGNS: Blood pressure is 114/57, pulse is 85, temperature is 99.7, respiratory rate is 28, O2 saturation is 88% on 4 liters by nasal cannula. HEENT: His head is atraumatic, normocephalic. Eyes: PERRLA. Sclerae is nonicteric. Conjunctivae pinkish. Oral mucosa is slightly dry. NECK: Supple, obese. LUNGS: Breath sounds diminished at both bases. No wheezing. HEART: S1 and S2 normal. No S3, no S4, distant sounds. ABDOMEN: Soft, obese, nontender, nondistended. EXTREMITIES: A 1-2+ peripheral edema, similar bilaterally, on lower and upper extremities. LABORATORY DATA: Showed white count of 13.9 from yesterday, hemoglobin of 10 from yesterday. Potass ium 4.4, chloride 93, sodium 137, CO2 of 18, anion gap 30, BUN 35, creatinine 0.95. Lactic acid 16.8 , total bilirubin 2.5, AST 74, ALT 32, alkaline phosphatase 173. Microbiology: C. difficile antigen and toxins negative. Urine culture and blood cultures x2 negative. IMPRESSION: 1. Large B-cell lymphoma with hyperuricemia, on rasburicase. The patient had just blood redrawn for uric acid. If uric acid is within normal range, he will get chemotherapy by Dr. Cassidy. 2. Metabolic acidosis, caused by lactic acidosis due to lymphoma. He is continued on bicarbonate dr wise. 3. New-onset atrial flutter/elevated troponins, status post AGA and ablation. We do not have any ev idence that he has recurrent atrial fibrillation, although he is not on any monitored bed. 4. Generalized weakness, multifactorial. 5. Peripheral edema, getting worse. I am going to start him on Lasix today. 6. Hypoxemia. Obtain chest x-ray. We will obtain ABGs and we will try to do diagnostic workup of h is hypoxemia.
--- NOTE | 2018-01-31 13:20 | RAD ---
PORTABLE CHEST 1 VIEW: Date: 01/31/18 Time: 51336 hours HISTORY: Hypoxemia. FINDINGS/IMPRESSION: Comparison made with exam of 03/30/18. The heart size is normal. There is evidence of old granulomatous disease. A right-sided Port-A-Cath r emains in place. No lobar consolidation, pneumothoraces, or pleural effusions are seen. Plates of bernardo ear atelectasis are seen in the left lung. POS: [facility]
[2018-01-31] MEDS ORDERED: DOXORUBICIN IVPB SCH (13:45)
[2018-01-31] MEDS ORDERED: Pegfilgrastim 6 MG/0.6 ML Delivery Kit SQ SCH (13:45)
[2018-01-31] MEDS ORDERED: Acetaminophen 500 MG TAB PO SCH (13:45)
[2018-01-31] MEDS ORDERED: SODIUM CHLORIDE 0.9% IVPB SCH ×3 (13:45)
[2018-01-31] MEDS ORDERED: RITUXIMAB IVPB SCH (13:45)
[2018-01-31] MEDS ORDERED: Dexamethasone 10 MG/ML VIAL SLOW IVP SCH (13:45)
[2018-01-31] MEDS ORDERED: PALONOSETRON HCL 0.05 MG/ML 5 ML VIAL IVP SCH (13:45)
[2018-01-31] MEDS ORDERED: diphenhydrAMINE 50 MG/ML VIAL IVP SCH (13:45)
[2018-01-31] MEDS ORDERED: vinCRIStine Sulfate 2 MG in Sodium Chloride 0.9% 50 ML IVPB SCH (13:45)
[2018-01-31] MEDS ORDERED: CYCLOPHOSPHAMIDE IVPB SCH (13:45)
[2018-01-31 14:24] VITALS: BMI 45.6
[2018-01-31] MEDS: cefTRIAXone\\ROCEPHIN 1 GM in Sodium Chloride 0.9% 100 ML IVPB SCH (14:48)
--- NOTE | 2018-01-31 15:36 | PQF ---
DATE: 01-31-18 ATTN: DR. BOUBACAR BONILLA Please exercise your independent, professional judgment in responding to the clarification form. Clinical indicators are provided on the bottom of this form for your review Please check appropriate box(s) to clarify if the following diagnosis has been ruled in or ruled out: SEPSIS [ ] Ruled in diagnosis [ ] Continue to treat [ ] Resolved [ ] Ruled out diagnosis [ ] Other diagnosis [ ] Unable to determine In addition, please specify: Present on Admission (POA): [ ] Yes [ ] No [ ] Unable to determine For continuity of documentation, please document condition throughout progress notes and discharge summary. Thank You. CLINICAL INDICATORS - SIGNS / SYMPTOMS / LABS H&P: METABOLIC ACIDOSIS/LACTIC ACIDOSIS, HYPOTENSION POSSIBILITIES INCLUDE SEVERE DEHYDRATION FROM POOR ORAL INTAKE D/T LYMPHADENOPATHY, OTHER POSSIBILITY COULD BE SEPSIS. H&P: LEUKOCYTOSIS OF UNCLEAR ETIOLOGY, PROBABLY SEPSIS INDUCED. H&P: NSTEMI, LARGE B CELL LYMPHOMA CONSULT NOTE DONITA RICHARDSON NP 01-26-18: ELEVATED TROP. THIS IS POSSIBLE DUE TO THE SEVERE DEHYDRATION, SEPSIS, OR POSSIBLE NEW ONSET OF ATRIAL FLUTTER. POSSIBLE SEPSIS. THE PATIENT'S LACTIC ACID WAS MORE THAN 4 TODAY. THE PATIENTS WBC IS 5.7. PATIENT IS ON NS 125ML/HR. PATIENTS BP IS HYPOTENSIVE, BUT STILL STABLE, HYPOTENSION. WBC: 8--18: 12.7, 8-2-18: 11.4 8-3-18: 11.4 8--18: 12.1 8--18: 12.9 8-6-18: 13.9 8--18: 21.4 BANDS: 8-5-18: 17 LACTIC ACID: 8-1-18: 9.0, 8.1 8-2-18: 9.0 8-3-18: 11.2 8-4-15: 11.3 8-6-18: 15.7 8--18: 16.8 RISK FACTORS: H&P: NSTEMI, LARGE B CELL LYMPHOMA, GENERALIZED WEAKNESS, HYPOTENSION, DEHYDRATION, METABOLIC ACIDOSIS, LACTIC ACIDOSIS TREATMENTS: MAR: IVF, ROCEPHIN ER: IVF (This form is maintained as a part of the permanent medical record) 2014 [employer] All Rights Reserved [email or web address] Office: [phone] [facility]
[2018-01-31 17:07] LABS: ALT (SGPT) 29 U/L (8-55); AST (SGOT) 75 U/L (5-34); Albumin 2.5 g/dL (3.4-4.8); Alkaline Phosphatase 169 U/L (40-150); Anion Gap 30 mmol/L (10-20); BUN (Urea Nitrogen) 35 mg/dL (8.4-25.7); Bilirubin, Total 2.5 mg/dL (0.2-1.2); Calc. Creatinine Clearance 187 mL/min (70-130); Calcium 8.7 mg/dL (7.8-10.44); Carbon Dioxide 18 mmol/L (23-31); Chloride 93 mmol/L (98-107); Estimated GFR-MDRD Greater than 90; Globulin 2.8 g/dL (2.4-3.5); Glucose 62 mg/dL (80-115); Potassium 4.3 mmol/L (3.5-5.1); Protein, Total 5.3 g/dL (5.8-8.1); Sodium 137 mmol/L (136-145)
[2018-01-31] MEDS: Latanoprost 0.005% Ophth Soln 2.5 ml Bottle EA EYE SCH (20:26)
[2018-02-01] MEDS: Sodium Bicarbonate 150 MEQ in Dextrose 5% in Water 1,000 ML IV SCH ×4 (00:01→20:02)
[2018-02-01 06:56] LABS: Hemoglobin 7.3 g/dL (14.0-18.0); Mean Corpuscular HGB CONC 31.1 g/dL (32.0-36.0); Mean Corpuscular Hemoglobin 26.8 pg (27.0-31.0); Mean Corpuscular Volume 86.3 fL (78.0-98.0); Mean Platelet Volume 7.3 fL (7.4-10.4); Platelet Count 367 thou/uL (130-400); RBC Distribution Width 19.2 % (11.5-14.5); Red Blood Cell (RBC) Count 2.71 mill/uL (4.70-6.10); White Blood Cell (WBC) Count 27.1 thou/uL (4.8-10.8)
[2018-02-01 07:41] LABS: Anisocytosis MODERATE=16-30 cells (100X) (0-5/hpf); Band 24 % (5-11); Blister Cells MARKED = >16 cells (100X) (0-1/hpf); Hypochromia SLIGHT = 6-15 cells (100X) (0-5/hpf); Lymphocytes 4 % (21-51); MDiff Complete? YES; Metamyelocyte 2 % (0-0); Monocytes 10 % (0-10); Neutrophil 60 % (42-75); Nucleated RBC 12 % (0); PLT Morphology Comment Appears Adequate; Polychromasia MODERATE = 3-4 cells (100X) (0-2/hpf); Schistocytes SLIGHT = 2-5 cells (100X) (0-1/hpf); Spherocytes SLIGHT = 1-5 cells (100X) (None Seen)
--- NOTE | 2018-02-01 08:03 | PQF ---
DATE: 01-31-1802-06 ATTN: DR. BOUBACAR BONILLA / DR. PERLITA SHANKAR / DR. JAMISON Please exercise your independent, professional judgment in responding to the clarification form. Clinical indicators are provided on the bottom of this form for your review Please check appropriate box(s) to clarify if the following diagnosis has been ruled in or ruled out: SEPSIS [ ] Ruled in diagnosis [ ] Continue to treat [ ] Resolved [ x ] Ruled out diagnosis [ ] Other diagnosis [ ] Unable to determine In addition, please specify: Present on Admission (POA): [ ] Yes [ x ] No [ ] Unable to determine For continuity of documentation, please document condition throughout progress notes and discharge summary. Thank You. CLINICAL INDICATORS - SIGNS / SYMPTOMS / LABS H&P: METABOLIC ACIDOSIS/LACTIC ACIDOSIS, HYPOTENSION POSSIBILITIES INCLUDE SEVERE DEHYDRATION FROM POOR ORAL INTAKE D/T LYMPHADENOPATHY, OTHER POSSIBILITY COULD BE SEPSIS. H&P: LEUKOCYTOSIS OF UNCLEAR ETIOLOGY, PROBABLY SEPSIS INDUCED. H&P: NSTEMI, LARGE B CELL LYMPHOMA CONSULT NOTE DONITA RICHARDSON NP 01-26-18: ELEVATED TROP. THIS IS POSSIBLE DUE TO THE SEVERE DEHYDRATION, SEPSIS, OR POSSIBLE NEW ONSET OF ATRIAL FLUTTER. POSSIBLE SEPSIS. THE PATIENT'S LACTIC ACID WAS MORE THAN 4 TODAY. THE PATIENTS WBC IS 5.7. PATIENT IS ON NS 125ML/HR. PATIENTS BP IS HYPOTENSIVE, BUT STILL STABLE, HYPOTENSION. WBC: 8--18: 12.7, 8-2-18: 11.4 8-3-18: 11.4 8-4-18: 12.1 8--18: 12.9 8-6-18: 13.9 8--18: 21.4 BANDS: 8--18: 17 LACTIC ACID: 8-1-18: 9.0, 8.1 8-2-18: 9.0 8-3-18: 11.2 8-4-15: 11.3 8-6-18: 15.7 8--18: 16.8 RISK FACTORS: H&P: NSTEMI, LARGE B CELL LYMPHOMA, GENERALIZED WEAKNESS, HYPOTENSION, DEHYDRATION, METABOLIC ACIDOSIS, LACTIC ACIDOSIS TREATMENTS: MAR: IVF, ROCEPHIN ER: IVF (This form is maintained as a part of the permanent medical record) 2014 [employer], [employer]. All Rights Reserved BRADFORD [email or web address] Office: [phone] [facility]
[2018-02-01 08:43] LABS: ALT (SGPT) 30 U/L (8-55); AST (SGOT) 84 U/L (5-34); Albumin 2.4 g/dL (3.4-4.8); Alkaline Phosphatase 154 U/L (40-150); Anion Gap 31 mmol/L (10-20); BUN (Urea Nitrogen) 41 mg/dL (8.4-25.7); Bilirubin, Total 2.1 mg/dL (0.2-1.2); Calc. Creatinine Clearance 189 mL/min (70-130); Calcium 8.7 mg/dL (7.8-10.44); Carbon Dioxide 20 mmol/L (23-31); Chloride 91 mmol/L (98-107); Estimated GFR-MDRD Greater than 90; Globulin 2.9 g/dL (2.4-3.5); Glucose 142 mg/dL (80-115); Phosphorus 3.4 mg/dL (2.3-4.7); Potassium 4.5 mmol/L (3.5-5.1); Protein, Total 5.3 g/dL (5.8-8.1); Sodium 137 mmol/L (136-145)
[2018-02-01] MEDS: Enoxaparin Sodium 100 MG/ML SYRINGE SC SCH ×2 (09:14→20:04)
[2018-02-01] MEDS: Famotidine 20 MG TAB PO SCH ×2 (09:15→20:05)
[2018-02-01] MEDS: Timolol 0.5% Ophth Soln 5 ml Bottle L EYE SCH ×2 (09:15→20:04)
[2018-02-01] MEDS: Aspirin 81 mg Enteric Coated Tablet PO SCH (09:15)
[2018-02-01] MEDS: metroNIDAZOLE 500 MG TAB PO SCH ×3 (09:15→20:05)
[2018-02-01] MEDS: Insulin Regular 300 UNITS/3 ML VIAL SC PRN (12:19)
[2018-02-01] MEDS: Furosemide 40 MG/4 ML VIAL SLOW IVP SCH (13:45)
[2018-02-01] MEDS: cefTRIAXone\\ROCEPHIN 1 GM in Sodium Chloride 0.9% 100 ML IVPB SCH (15:24)
[2018-02-01 18:04] LABS: ALT (SGPT) 30 U/L (8-55); AST (SGOT) 73 U/L (5-34); Albumin 2.4 g/dL (3.4-4.8); Alkaline Phosphatase 157 U/L (40-150); Anion Gap 28 mmol/L (10-20); BUN (Urea Nitrogen) 42 mg/dL (8.4-25.7); Bilirubin, Total 1.8 mg/dL (0.2-1.2); Calc. Creatinine Clearance 187 mL/min (70-130); Calcium 8.7 mg/dL (7.8-10.44); Carbon Dioxide 22 mmol/L (23-31); Chloride 91 mmol/L (98-107); Estimated GFR-MDRD Greater than 90; Globulin 2.9 g/dL (2.4-3.5); Glucose 150 mg/dL (80-115); Magnesium 1.9 mg/dL (1.6-2.6); Potassium 4.2 mmol/L (3.5-5.1); Protein, Total 5.3 g/dL (5.8-8.1); Sodium 137 mmol/L (136-145); Uric Acid 5.9 mg/dL (3.5-7.2)
[2018-02-01] MEDS: Latanoprost 0.005% Ophth Soln 2.5 ml Bottle EA EYE SCH (20:04)
--- NOTE | 2018-02-01 23:49 | PDOC.PN ---
- Subjective Encounter Start Date: 02/01/18 Encounter Start Time: 18:00 -: old records requested/rev Subjective: nsg notes rev, no new c/o, requests his CPAP as he would like to go to -: sleep now. wants to go to [facility] - Objective Resuscitation Status: Resuscitation Status FULL:Full Resuscitation Vital Signs & Weight: Vital Signs (12 hours) Temp Pulse Resp BP BP Pulse Ox 02/01/18 23:42 76 20 93 L 02/01/18 23:35 97.8 F 77 20 112/64 92 L 02/01/18 20:04 78 123/74 02/01/18 20:00 97.6 F 78 20 93 L 02/01/18 19:49 97.6 F 78 20 106/61 93 L 02/01/18 18:28 74 20 91 L 02/01/18 16:00 98.9 F 76 22 H 123/74 91 L 02/01/18 14:03 84 22 H 93 L 02/01/18 12:00 98.8 F 76 22 H 128/68 92 L Weight Admit Weight 358 lb 6.4 oz Weight 374 lb 9.046 oz I&O: 01/31/18 02/01/18 02/02/18 06:59 06:59 06:59 Intake Total 2550 4800 3850 Output Total 925 1900 1800 Balance 1625 2900 2050 Result Diagrams: 02/02/18 05:40 02/02/18 05:40 Additional Labs: Accuchecks 02/01/18 02/01/18 02/01/18 19:59 16:25 12:15 POC Glucose 179 H 194 H 226 H 02/01/18 05:40 POC Glucose 155 H Phys Exam - Physical Examination Constitutional: NAD lying in hospital bed HEENT: moist MMs EOMI, normocephalic, atraumatic Respiratory: no wheezing, no rales, no rhonchi, clear to auscultation bilateral diminished throughout, no conversational dyspnea, limited ant exam Cardiovascular: RRR, no significant murmur, no rub Gastrointestinal: soft, positive bowel sounds Dx/Plan - Plan 1. Generalized weakness, multifactorial continue working with PT/OT 2. Large B cell lymphoma with hyperuricemia Plan for Chemo this admission on Rasburicase apprec onc c/s 3. HTN Home meds on hold due to BP on lower side 4. MARCO ANTONIO - multifactorial - improving AM labs Cont IVF 5. Metabolic acidosis/lactic acidosis due to Lymphoma/Starvation ketosis/ Dehydration Cont bicarb drip Lactic acidosis in AM Cont Abx 6. New onset Atrial flutter/Elevated troponins s/p AGA/Ablation Cont low dose ASA with Anticoag for stroke prophylaxis Anticoag for atleast [address] Gilbert 7. Swallow dysfunction due to neck lymphadenopathy - improving Start D/C planning - pt would prefer [place] Review of Systems - Medications/Allergies Allergies/Adverse Reactions: Allergies Allergy/AdvReac Type Severity Reaction Status Date / Time fluoxetine Allergy swelling Verified 12/26/17 14:37 morphine Allergy Verified 12/26/17 14:36 Penicillins Allergy Verified 12/26/17 14:36 Medications: Current Medications Acetaminophen (Tylenol) 650 mg PO Q4H PRN PRN Reason: Headache/Fever or Pain Last Admin: 01/29/18 21:11 Dose: 650 mg Acetaminophen/Codeine Phosphate (Tylenol #3) 1 tab PO Q4H PRN PRN Reason: Mild Pain (1-3) Last Admin: 01/31/18 08:19 Dose: 1 tab Al Hydroxide/Mg Hydroxide (Maalox) 30 ml PO Q6H PRN PRN Reason: Heartburn or Indigestion Albuterol/Ipratropium (Duoneb) 3 ml NEB [id number] [facility] Last Admin: 02/01/18 23:42 Dose: 3 ml Albuterol/Ipratropium (Duoneb) 3 ml NEB [id number] PRN PRN Reason: SOB &/or Wheezing Aspirin (Ecotrin) 81 mg PO DAILY [facility] Last Admin: 02/01/18 09:15 Dose: 81 mg Calcium Carbonate (Tums) 1,000 mg PO Q4H PRN PRN Reason: Heartburn or Indigestion Dextrose/Water (Dextrose 50%) 25 gm IVP PRN PRN PRN Reason: HYPOGLYCEMIA PROTOCOL Diltiazem HCl (Cardizem) 30 mg PO Q6HR PRN PRN Reason: HR >120 sustained Enoxaparin Sodium (Lovenox) 100 mg SC 0900,2100 [facility] Last Admin: 02/01/18 20:04 Dose: 100 mg Famotidine (Pepcid) 20 mg PO BID [facility] Last Admin: 02/01/18 20:05 Dose: 20 mg Furosemide (Lasix) 40 mg SLOW IVP 0600,1400 [facility] Last Admin: 02/01/18 13:45 Dose: 40 mg Glucagon (Glucagon) 1 mg IM PRN PRN PRN Reason: HYPOGLYCEMIA PROTOCOL Ceftriaxone Sodium 1 gm/ (Sodium Chloride) 100 mls @ 200 mls/hr IVPB Q24HR [facility] Last Admin: 02/01/18 15:24 Dose: 100 mls Sodium Bicarbonate 150 meq/ (Dextrose/Water) 1,150 mls @ 150 mls/hr IV .Q7H40M [facility] Last Admin: 02/01/18 20:02 Dose: 1,150 mls Dextrose/Water (D5w) 1,000 mls @ 0 mls/hr IV INF PRN PRN Reason: HYPOGLYCEMIA PROTOCOL Insulin Human Regular (Humulin R) 0 units SC .MODERATE SLIDING SC PRN; Protocol PRN Reason: MODERATE SLIDING SCALE Last Admin: 02/01/18 12:19 Dose: 4 unit Latanoprost (Xalatan 0.005% Oph Sol) 1 drop EA EYE HS [facility] Last Admin: 02/01/18 20:04 Dose: 1 drp Lidocaine HCl (Xylocaine 2% Viscous) 15 ml SSP Q4HR PRN PRN Reason: SORE THROAT Last Admin: 01/27/18 17:57 Dose: 15 ml Magnesium Hydroxide (Milk Of Magnesium) 30 ml PO DAILYPRN PRN PRN Reason: Constipation Metronidazole (Flagyl) 500 mg PO TID [facility] Last Admin: 02/01/18 20:05 Dose: 500 mg Nitroglycerin (Nitrostat) 0.4 mg PO Q5MIN PRN PRN Reason: Chest Pain Ondansetron HCl (Zofran Odt) 4 mg PO Q6H PRN PRN Reason: Nausea/Vomiting Ondansetron HCl (Zofran) 4 mg IVP Q6H PRN PRN Reason: Nausea/Vomiting Phenol (Chloraseptic [place] 180 Ml Bot) 0 ml PO BIDPRN PRN PRN Reason: Sore Throat Senna (Senokot) 2 tab PO HSPRN PRN PRN Reason: Constipation Sodium Chloride (Flush - Normal Saline) 10 ml IVF PRN PRN PRN Reason: Saline Flush Sodium Chloride (Flush - Normal Saline) 10 ml IVF PRN PRN PRN Reason: Saline Flush Timolol Maleate (Timoptic 0.5% Ophth Soltiffany) 1 drop L EYE BID [facility] Last Admin: 02/01/18 20:04 Dose: 1 drp
[2018-02-02] MEDS: Acetaminophen/Codeine 30-300mg Tablet PO PRN (02:54)
[2018-02-02] MEDS: Sodium Bicarbonate 150 MEQ in Dextrose 5% in Water 1,000 ML IV SCH ×2 (02:56→11:27)
[2018-02-02 06:17] LABS: ALT (SGPT) 25 U/L (8-55); AST (SGOT) 59 U/L (5-34); Albumin 2.4 g/dL (3.4-4.8); Alkaline Phosphatase 149 U/L (40-150); Anion Gap 26 mmol/L (10-20); BUN (Urea Nitrogen) 41 mg/dL (8.4-25.7); Bilirubin, Total 2.2 mg/dL (0.2-1.2); Calc. Creatinine Clearance 215 mL/min (70-130); Calcium 8.9 mg/dL (7.8-10.44); Carbon Dioxide 24 mmol/L (23-31); Chloride 90 mmol/L (98-107); Estimated GFR-MDRD Greater than 90; Globulin 2.8 g/dL (2.4-3.5); Glucose 126 mg/dL (80-115); Phosphorus 2.9 mg/dL (2.3-4.7); Protein, Total 5.2 g/dL (5.8-8.1); Sodium 136 mmol/L (136-145)
[2018-02-02 06:26] LABS: White Blood Cell (WBC) Count 30.7 thou/uL (4.8-10.8)
[2018-02-02] MEDS: Furosemide 40 MG/4 ML VIAL SLOW IVP SCH ×2 (06:36→14:23)
[2018-02-02 07:17] LABS: Band 24 % (5-11); Blister Cells MARKED = >16 cells (100X) (0-1/hpf); Eosinophils 2 % (0-10); Hemoglobin 6.6 g/dL (14.0-18.0); Hypochromia SLIGHT = 6-15 cells (100X) (0-5/hpf); Lymphocytes 5 % (21-51); MDiff Complete? YES; Mean Corpuscular HGB CONC 30.5 g/dL (32.0-36.0); Mean Corpuscular Hemoglobin 26.8 pg (27.0-31.0); Mean Corpuscular Volume 87.8 fL (78.0-98.0); Mean Platelet Volume 7.3 fL (7.4-10.4); Monocytes 4 % (0-10); Myelocyte 1 % (0-0); Neutrophil 64 % (42-75); Nucleated RBC 7 % (0); Platelet Count 384 thou/uL (130-400); Polychromasia MODERATE = 3-4 cells (100X) (0-2/hpf); RBC Distribution Width 20.1 % (11.5-14.5); Red Blood Cell (RBC) Count 2.48 mill/uL (4.70-6.10); Spherocytes SLIGHT = 1-5 cells (100X) (None Seen); Target Cells SLIGHT = 2-5 cells (100X) (0-1/hpf)
[2018-02-02] MEDS: metroNIDAZOLE 500 MG TAB PO SCH ×3 (09:45→20:17)
[2018-02-02] MEDS: Aspirin 81 mg Enteric Coated Tablet PO SCH (09:46)
[2018-02-02] MEDS: Enoxaparin Sodium 100 MG/ML SYRINGE SC SCH ×2 (09:46→20:16)
[2018-02-02] MEDS: Famotidine 20 MG TAB PO SCH ×2 (09:46→20:17)
[2018-02-02] MEDS: Timolol 0.5% Ophth Soln 5 ml Bottle L EYE SCH ×2 (09:47→20:56)
[2018-02-02] MEDS: Insulin Regular 300 UNITS/3 ML VIAL SC PRN (11:34)
[2018-02-02] MEDS: cefTRIAXone\\ROCEPHIN 1 GM in Sodium Chloride 0.9% 100 ML IVPB SCH (14:23)
[2018-02-02] MEDS: Latanoprost 0.005% Ophth Soln 2.5 ml Bottle EA EYE SCH (20:20)
--- NOTE | 2018-02-02 22:55 | PDOC.PN ---
- Objective Resuscitation Status: Resuscitation Status FULL:Full Resuscitation Vital Signs & Weight: Vital Signs (12 hours) Temp Pulse Pulse Resp BP BP BP 02/02/18 20:56 80 103/62 02/02/18 20:15 98.5 F 80 20 128/68 02/02/18 18:20 99 F 81 20 132/69 02/02/18 18:13 86 18 02/02/18 18:05 98.8 F 80 20 103/62 02/02/18 18:00 99 F 86 20 121/64 02/02/18 15:30 98.8 F 86 22 H 124/61 02/02/18 15:15 98.8 F 79 22 H 120/56 L 02/02/18 14:31 87 20 02/02/18 11:31 98.6 F 85 22 H 127/59 L 02/02/18 11:16 84 16 Pulse Ox 02/02/18 20:56 02/02/18 20:15 94 L 02/02/18 18:20 02/02/18 18:13 96 02/02/18 18:05 92 L 02/02/18 18:00 02/02/18 15:30 02/02/18 15:15 02/02/18 14:31 94 L 02/02/18 11:31 92 L 02/02/18 11:16 92 L Weight Admit Weight 358 lb 6.4 oz Weight 374 lb 9.046 oz I&O: 02/01/18 02/02/18 02/03/18 06:59 06:59 06:59 Intake Total 4800 6610 1610 Output Total 1900 3000 1850 Balance 2900 3610 -240 Result Diagrams: 02/02/18 05:40 02/02/18 05:40 Additional Labs: Accuchecks 02/02/18 02/02/18 02/02/18 20:15 15:51 11:18 POC Glucose 186 H 201 H 207 H 02/02/18 05:34 POC Glucose 139 H Dx/Plan - Plan * .
[2018-02-03] MEDS: Sodium Bicarbonate 150 MEQ in Dextrose 5% in Water 1,000 ML IV SCH ×3 (01:22→16:34)
[2018-02-03 05:00] LABS: Calcium 8.9 mg/dL (7.8-10.44); Phosphorus 2.8 mg/dL (2.3-4.7); Uric Acid 8.3 mg/dL (3.5-7.2)
[2018-02-03] MEDS: Insulin Regular 300 UNITS/3 ML VIAL SC PRN ×2 (06:30→11:19)
[2018-02-03] MEDS: Furosemide 40 MG/4 ML VIAL SLOW IVP SCH ×2 (07:14→15:00)
[2018-02-03] MEDS: Aspirin 81 mg Enteric Coated Tablet PO SCH (09:15)
[2018-02-03] MEDS: Enoxaparin Sodium 100 MG/ML SYRINGE SC SCH ×2 (09:15→21:27)
[2018-02-03] MEDS: Famotidine 20 MG TAB PO SCH ×2 (09:16→20:21)
[2018-02-03] MEDS: metroNIDAZOLE 500 MG TAB PO SCH ×3 (09:16→20:21)
[2018-02-03] MEDS: Timolol 0.5% Ophth Soln 5 ml Bottle L EYE SCH ×2 (09:16→21:26)
[2018-02-03 09:20] LABS: Hemoglobin 6.7 g/dL (14.0-18.0); Mean Corpuscular HGB CONC 31.6 g/dL (32.0-36.0); Mean Corpuscular Volume 88.7 fL (78.0-98.0); Mean Platelet Volume 6.9 fL (7.4-10.4); Platelet Count 335 thou/uL (130-400); RBC Distribution Width 17.8 % (11.5-14.5); White Blood Cell (WBC) Count 42.2 thou/uL (4.8-10.8)
[2018-02-03 09:46] LABS: Anion Gap 19 mmol/L (10-20); BUN (Urea Nitrogen) 40 mg/dL (8.4-25.7); Calc. Creatinine Clearance 250 mL/min (70-130); Calcium 8.7 mg/dL (7.8-10.44); Carbon Dioxide 33 mmol/L (23-31); Chloride 88 mmol/L (98-107); Estimated GFR-MDRD Greater than 90; Glucose 143 mg/dL (80-115); Potassium 3.8 mmol/L (3.5-5.1); Sodium 136 mmol/L (136-145)
[2018-02-03 09:55] LABS: Band 38 % (5-11); Blister Cells MODERATE= 6-15 cells (100X) (0-1/hpf); Eosinophils 1 % (0-10); Hypochromia SLIGHT = 6-15 cells (100X) (0-5/hpf); Lymphocytes 3 % (21-51); MDiff Complete? YES; Metamyelocyte 1 % (0-0); Monocytes 3 % (0-10); Neutrophil 54 % (42-75); Nucleated RBC 1 % (0); PLT Morphology Comment Appears Adequate; Polychromasia MODERATE = 3-4 cells (100X) (0-2/hpf); Spherocytes SLIGHT = 1-5 cells (100X) (None Seen); Target Cells SLIGHT = 2-5 cells (100X) (0-1/hpf)
[2018-02-03] MEDS: cefTRIAXone\\ROCEPHIN 1 GM in Sodium Chloride 0.9% 100 ML IVPB SCH (15:18)
[2018-02-03] MEDS: Latanoprost 0.005% Ophth Soln 2.5 ml Bottle EA EYE SCH (20:22)
--- NOTE | 2018-02-03 21:09 | PDOC.PN ---
- Subjective Encounter Start Date: 02/03/18 Encounter Start Time: 21:08 Subjective: nsg notes rev, gwendolyn ovn, no new issues -: tolerated neulasta -: still awaiting decision re: placement - Objective Resuscitation Status: Resuscitation Status FULL:Full Resuscitation Vital Signs & Weight: Vital Signs (12 hours) Temp Pulse Pulse Pulse Pulse Resp BP 02/03/18 19:14 98.5 F 85 16 02/03/18 18:53 98.5 F 85 16 02/03/18 18:16 87 16 02/03/18 16:39 99 F 90 16 02/03/18 16:24 98.9 F 88 16 02/03/18 16:00 98.9 F 88 16 02/03/18 14:13 87 16 02/03/18 11:10 97.8 F 87 16 02/03/18 10:15 89 91 02/03/18 10:14 92 16 02/03/18 09:16 90 106/55 L BP BP BP BP Pulse Ox 02/03/18 19:14 112/56 L 96 02/03/18 18:53 112/56 L 96 02/03/18 18:16 99 02/03/18 16:39 131/68 98 02/03/18 16:24 111/58 L 96 02/03/18 16:00 111/58 L 96 02/03/18 14:13 02/03/18 11:10 109/57 L 96 02/03/18 10:15 120/57 L 108/57 L 02/03/18 10:14 02/03/18 09:16 Weight Admit Weight 358 lb 6.4 oz Weight 374 lb 9.046 oz I&O: 02/02/18 02/03/18 02/04/18 06:59 06:59 06:59 Intake Total 6610 3059 2532 Output Total 3000 3025 1500 Balance 3610 34 1032 Result Diagrams: 02/03/18 09:06 02/03/18 09:06 Additional Labs: Accuchecks 02/03/18 02/03/18 02/03/18 20:18 15:58 11:09 POC Glucose 173 H 189 H 225 H 02/03/18 05:43 POC Glucose 169 H Dx/Plan - Plan * .
[2018-02-04 03:45] LABS: Band 25 % (5-11); Hemoglobin 6.4 g/dL (14.0-18.0); Lymphocytes 5 % (21-51); MDiff Complete? YES; Mean Corpuscular HGB CONC 32.2 g/dL (32.0-36.0); Mean Corpuscular Hemoglobin 29.1 pg (27.0-31.0); Mean Corpuscular Volume 90.4 fL (78.0-98.0); Mean Platelet Volume 7.2 fL (7.4-10.4); Monocytes 3 % (0-10); Neutrophil 67 % (42-75); PLT Morphology Comment Appears Adequate; Platelet Count 277 thou/uL (130-400); RBC Distribution Width 16.9 % (11.5-14.5); White Blood Cell (WBC) Count 37.7 thou/uL (4.8-10.8)
[2018-02-04 03:51] LABS: Anion Gap 17 mmol/L (10-20); BUN (Urea Nitrogen) 33 mg/dL (8.4-25.7); Calc. Creatinine Clearance 270 mL/min (70-130); Calcium 8.5 mg/dL (7.8-10.44); Carbon Dioxide 36 mmol/L (23-31); Chloride 88 mmol/L (98-107); Estimated GFR-MDRD Greater than 90; Glucose 154 mg/dL (80-115); Potassium 3.7 mmol/L (3.5-5.1); Sodium 137 mmol/L (136-145)
[2018-02-04] MEDS: Furosemide 40 MG/4 ML VIAL SLOW IVP SCH ×2 (05:36→15:09)
[2018-02-04] MEDS: Timolol 0.5% Ophth Soln 5 ml Bottle L EYE SCH ×2 (09:24→20:03)
[2018-02-04] MEDS: Enoxaparin Sodium 100 MG/ML SYRINGE SC SCH ×2 (09:24→20:04)
[2018-02-04] MEDS: metroNIDAZOLE 500 MG TAB PO SCH ×3 (09:25→20:04)
[2018-02-04] MEDS: Aspirin 81 mg Enteric Coated Tablet PO SCH (09:25)
[2018-02-04] MEDS: Famotidine 20 MG TAB PO SCH ×2 (12:01→20:04)
[2018-02-04] MEDS: Insulin Regular 300 UNITS/3 ML VIAL SC PRN ×2 (12:02→17:43)
[2018-02-04] MEDS: cefTRIAXone\\ROCEPHIN 1 GM in Sodium Chloride 0.9% 100 ML IVPB SCH (17:07)
[2018-02-04] MEDS: Latanoprost 0.005% Ophth Soln 2.5 ml Bottle EA EYE SCH (20:04)
--- NOTE | 2018-02-04 20:16 | PDOC.PN ---
- Subjective Encounter Start Date: 02/04/18 Encounter Start Time: 20:15 Subjective: nsg notes rev, gwendolyn ovn -: pending placement - sig amount of discrepancy between fm and pt - Objective Resuscitation Status: Resuscitation Status FULL:Full Resuscitation Vital Signs & Weight: Vital Signs (12 hours) Temp Pulse Pulse Resp BP BP BP 02/04/18 20:03 95 102/64 02/04/18 19:04 98.6 F 95 14 102/64 02/04/18 18:05 98.6 F 95 14 102/64 02/04/18 17:56 98.7 F 80 16 97/55 L 02/04/18 16:55 98.4 F 89 89 14 117/56 L 117/56 L 02/04/18 14:35 98.4 F 85 14 119/59 L 02/04/18 14:17 98.6 F 97 16 108/55 L 02/04/18 11:35 98.5 F 83 16 98/51 L 02/04/18 10:34 78 16 02/04/18 09:24 77 167/90 H Pulse Ox 02/04/18 20:03 02/04/18 19:04 100 02/04/18 18:05 02/04/18 17:56 100 02/04/18 16:55 02/04/18 14:35 02/04/18 14:17 02/04/18 11:35 95 02/04/18 10:34 02/04/18 09:24 Weight Admit Weight 358 lb 6.4 oz Weight 374 lb 9.046 oz I&O: 02/03/18 02/04/18 02/05/18 06:59 06:59 06:59 Intake Total 3059 2532 2350 Output Total 3025 2200 2450 Balance 34 332 -100 Result Diagrams: 02/04/18 03:20 02/04/18 03:20 Additional Labs: Accuchecks 02/04/18 02/04/18 02/04/18 19:40 16:39 11:31 POC Glucose 223 H 197 H 211 H 02/04/18 02/03/18 05:32 20:18 POC Glucose 156 H 173 H Dx/Plan - Plan 1. Generalized weakness, multifactorial continue working with PT/OT 2. Large B cell lymphoma with hyperuricemia Plan for Chemo this admission on Rasburicase apprec onc c/s 3. HTN Home meds on hold due to BP on lower side 4. MARCO ANTONIO - multifactorial - improving AM labs Cont IVF 5. Metabolic acidosis/lactic acidosis due to Lymphoma/Starvation ketosis/ Dehydration 6. New onset Atrial flutter/Elevated troponins s/p AGA/Ablation Cont low dose ASA with Anticoag for stroke prophylaxis Anticoag for atleast [address] Gilbert 7. Swallow dysfunction due to neck lymphadenopathy - improving Please see CM notes for reference to family dynamic issues that are impacting/ delaying patient's disposition. Review of Systems - Medications/Allergies Allergies/Adverse Reactions: Allergies Allergy/AdvReac Type Severity Reaction Status Date / Time fluoxetine Allergy swelling Verified 12/26/17 14:37 morphine Allergy Verified 12/26/17 14:36 Penicillins Allergy Verified 12/26/17 14:36 Medications: Current Medications Acetaminophen (Tylenol) 650 mg PO Q4H PRN PRN Reason: Headache/Fever or Pain Last Admin: 01/29/18 21:11 Dose: 650 mg Acetaminophen/Codeine Phosphate (Tylenol #3) 1 tab PO Q4H PRN PRN Reason: Mild Pain (1-3) Last Admin: 02/02/18 02:54 Dose: 1 tab Al Hydroxide/Mg Hydroxide (Maalox) 30 ml PO Q6H PRN PRN Reason: Heartburn or Indigestion Albuterol/Ipratropium (Duoneb) 3 ml NEB [id number] [facility] [place] Last Admin: 02/04/18 16:44 Dose: Not Given Albuterol/Ipratropium (Duoneb) 3 ml NEB [id number] PRN PRN Reason: SOB &/or Wheezing Aspirin (Ecotrin) 81 mg PO DAILY [facility] [place] Last Admin: 02/04/18 09:25 Dose: 81 mg Calcium Carbonate (Tums) 1,000 mg PO Q4H PRN PRN Reason: Heartburn or Indigestion Dextrose/Water (Dextrose 50%) 25 gm IVP PRN PRN PRN Reason: HYPOGLYCEMIA PROTOCOL Diltiazem HCl (Cardizem) 30 mg PO Q6HR PRN PRN Reason: HR >120 sustained Enoxaparin Sodium (Lovenox) 100 mg SC 0900,2100 [facility] [place] Last Admin: 02/04/18 20:04 Dose: 100 mg Famotidine (Pepcid) 20 mg PO BID [facility] [place] Last Admin: 02/04/18 20:04 Dose: 20 mg Furosemide (Lasix) 40 mg SLOW IVP 0600,1400 [facility] [place] Last Admin: 02/04/18 15:09 Dose: Not Given Glucagon (Glucagon) 1 mg IM PRN PRN PRN Reason: HYPOGLYCEMIA PROTOCOL Ceftriaxone Sodium 1 gm/ (Sodium Chloride) 100 mls @ 200 mls/hr IVPB Q24HR [facility] [place] Last Admin: 02/04/18 17:07 Dose: 100 mls Dextrose/Water (D5w) 1,000 mls @ 0 mls/hr IV INF PRN PRN Reason: HYPOGLYCEMIA PROTOCOL Insulin Human Regular (Humulin R) 0 units SC .MODERATE SLIDING SC PRN; Protocol PRN Reason: MODERATE SLIDING SCALE Last Admin: 02/04/18 17:43 Dose: 2 unit Latanoprost (Xalatan 0.005% Ophth Soln) 1 drop EA EYE HS [facility] [place] Last Admin: 02/04/18 20:04 Dose: 1 drp Lidocaine HCl (Xylocaine 2% Viscous) 15 ml SSP Q4HR PRN PRN Reason: SORE THROAT Last Admin: 01/27/18 17:57 Dose: 15 ml Magnesium Hydroxide (Milk Of Magnesium) 30 ml PO DAILYPRN PRN PRN Reason: Constipation Metronidazole (Flagyl) 500 mg PO TID [facility] [place] Last Admin: 02/04/18 20:04 Dose: 500 mg Nitroglycerin (Nitrostat) 0.4 mg PO Q5MIN PRN PRN Reason: Chest Pain Ondansetron HCl (Zofran Odt) 4 mg PO Q6H PRN PRN Reason: Nausea/Vomiting Ondansetron HCl (Zofran) 4 mg IVP Q6H PRN PRN Reason: Nausea/Vomiting Phenol (Chloraseptic [place] 180 Ml Bot) 0 ml PO BIDPRN PRN PRN Reason: Sore Throat Senna (Senokot) 2 tab PO HSPRN PRN PRN Reason: Constipation Sodium Chloride (Flush - Normal Saline) 10 ml IVF PRN PRN PRN Reason: Saline Flush Last Admin: 02/04/18 20:04 Dose: 10 ml Sodium Chloride (Flush - Normal Saline) 10 ml IVF PRN PRN PRN Reason: Saline Flush Timolol Maleate (Timoptic 0.5% Ophth Soln) 1 drop L EYE BID [facility] [place] Last Admin: 02/04/18 20:03 Dose: 1 drp
--- NOTE | 2018-02-04 20:39 | EKG ---
Test Reason : Blood Pressure : / mmHG Vent. Rate : 082 BPM Atrial Rate : 264 BPM P-R Int : 000 ms QRS Dur : 084 ms QT Int : 420 ms P-R-T Axes : 259 013 022 degrees QTc Int : 490 ms Atrial flutter with variable A-V block Low voltage QRS Prolonged QT Abnormal ECG Confirmed by REYNA GARZA D.O. ([id number]), brands editor MEL DE ANDA ([id number]) on 02/04/2018 8:38:39 PM Referred By: Confirmed By:REYNA GARZA D.O.
[2018-02-05] MEDS: Furosemide 40 MG/4 ML VIAL SLOW IVP SCH ×2 (06:11→13:51)
[2018-02-05 06:25] LABS: Calcium 8.6 mg/dL (7.8-10.44)
[2018-02-05 07:11] LABS: Band 2 % (5-11); Hemoglobin 7.4 g/dL (14.0-18.0); Hypochromia SLIGHT = 6-15 cells (100X) (0-5/hpf); Lymphocytes 2 % (21-51); MDiff Complete? YES; Mean Corpuscular HGB CONC 33.6 g/dL (32.0-36.0); Mean Corpuscular Hemoglobin 30.2 pg (27.0-31.0); Mean Corpuscular Volume 89.9 fL (78.0-98.0); Mean Platelet Volume 6.9 fL (7.4-10.4); Monocytes 4 % (0-10); Neutrophil 92 % (42-75); PLT Morphology Comment Appears Adequate; Platelet Count 287 thou/uL (130-400); RBC Distribution Width 15.5 % (11.5-14.5); Red Blood Cell (RBC) Count 2.47 mill/uL (4.70-6.10); White Blood Cell (WBC) Count 27.5 thou/uL (4.8-10.8)
[2018-02-05] MEDS: Aspirin 81 mg Enteric Coated Tablet PO SCH (08:29)
[2018-02-05] MEDS: Famotidine 20 MG TAB PO SCH ×2 (08:29→20:35)
[2018-02-05] MEDS: metroNIDAZOLE 500 MG TAB PO SCH ×2 (08:29→15:26)
[2018-02-05] MEDS: Enoxaparin Sodium 100 MG/ML SYRINGE SC SCH ×2 (08:30→20:36)
[2018-02-05] MEDS: Timolol 0.5% Ophth Soln 5 ml Bottle L EYE SCH ×2 (08:30→20:36)
--- NOTE | 2018-02-05 14:22 | PDOC.PN ---
- Subjective Encounter Start Date: 02/05/18 Encounter Start Time: 14:10 Subjective: f/u for B-cell lymphoma s/p chemo. Nsg reports scrotal edema over last -: several days receiving Lasix intermittently. Pt states weak but wants to -: move. Sat EOB with PT today. - Objective Resuscitation Status: Resuscitation Status FULL:Full Resuscitation MAR Reviewed: Yes Vital Signs & Weight: Vital Signs (12 hours) Temp Pulse Resp BP BP Pulse Ox 02/05/18 12:00 98.6 F 85 18 120/58 L 100 02/05/18 10:37 91 16 02/05/18 08:43 98.6 F 77 16 127/60 100 02/05/18 08:30 77 127/60 02/05/18 08:00 98.6 F 77 16 100 02/05/18 06:28 100 02/05/18 06:27 107 H 16 02/05/18 06:12 110/77 02/05/18 04:00 98.2 F 92 16 120/58 L 98 Weight Admit Weight 358 lb 6.4 oz Weight 404 lb I&O: 02/04/18 02/05/18 02/06/18 06:59 06:59 06:59 Intake Total 2532 3660 240 Output Total 2200 3250 850 Balance 332 410 -610 Result Diagrams: 02/05/18 06:07 02/04/18 03:20 Additional Labs: Accuchecks 02/05/18 02/05/18 02/04/18 10:59 05:57 19:40 POC Glucose 215 H 196 H 223 H 02/04/18 16:39 POC Glucose 197 H Laboratory Tests 02/01/18 02/02/18 02/03/18 06:35 05:40 09:06 WBC 27.1 H 30.7 H 42.2 H* Hgb 7.3 L 6.6 L 6.7 L Band Neuts % (Manual) 24 H 24 H 38 H 02/04/18 02/05/18 03:20 06:07 WBC 37.7 H Hgb 6.4 L Band Neuts % (Manual) 25 H 2 L Phys Exam - Physical Examination Constitutional: NAD alert, responsive Nasal CPAP in place HEENT: PERRLA, sclera anicteric, oral pharynx no lesions Neck: no nodes, no JVD, supple, full ROM Respiratory: no wheezing, no rales, no rhonchi, clear to auscultation bilateral Cardiovascular: RRR, no significant murmur, no rub, gallop Obese Gastrointestinal: soft, non-tender, no distention, positive bowel sounds Musculoskeletal: pulses present, edema present Neurological: normal sensation, moves all 4 limbs Psychiatric: A&O x 3 Skin: no rash, cap refill <2 seconds Deviation from normal: large scrotal edema Dx/Plan (1) Edema Code(s): R60.9 - EDEMA, UNSPECIFIED Status: Acute Qualifiers: Edema type: unspecified Qualified Code(s): R60.9 - Edema, unspecified Comment: Likely multifactorial and dependent, change Lasix 20mg IV q8h, OOB/ ambulate, strict I/O's, daily weight (2) Large B-cell lymphoma Code(s): C85.10 - UNSPECIFIED B-CELL LYMPHOMA, UNSPECIFIED SITE Status: Chronic Comment: s/p chemo on 02/01/18 (3) Anemia due to chemotherapy Code(s): D64.81 - ANEMIA DUE TO ANTINEOPLASTIC CHEMOTHERAPY; T45.1X5A - ADVERSE EFFECT OF ANTINEOPLASTIC AND IMMUNOSUP DRUGS, INIT Status: Acute Comment: s/ p 5u total PRBC's currently, serial H/H (4) Physical deconditioning Code(s): R53.81 - OTHER MALAISE Status: Chronic Comment: PT for mobilization and ambulation (5) Leukocytosis Code(s): D72.829 - ELEVATED WHITE BLOOD CELL COUNT, UNSPECIFIED Status: Acute Qualifiers: Leukocytosis type: bandemia Qualified Code(s): D72.825 - Bandemia Comment: Likely due to recent chemotherapy, monitor trend, no evidence of active infectious process - Plan continue antibiotics, 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 Swing bed options * AM lab: BMP, CBC
[2018-02-05] MEDS: cefTRIAXone\\ROCEPHIN 1 GM in Sodium Chloride 0.9% 100 ML IVPB SCH (15:25)
[2018-02-05] MEDS: Furosemide 20 MG/2 ML VIAL SLOW IVP SCH ×2 (15:34→22:21)
[2018-02-05] MEDS: Latanoprost 0.005% Ophth Soln 2.5 ml Bottle EA EYE SCH (20:36)
[2018-02-06 05:10] LABS: Anion Gap 10 mmol/L (10-20); BUN (Urea Nitrogen) 16 mg/dL (8.4-25.7); Calc. Creatinine Clearance 327 mL/min (70-130); Calcium 8.4 mg/dL (7.8-10.44); Carbon Dioxide 37 mmol/L (23-31); Chloride 93 mmol/L (98-107); Estimated GFR-MDRD Greater than 90; Glucose 156 mg/dL (80-115); Phosphorus 3.3 mg/dL (2.3-4.7); Potassium 3.3 mmol/L (3.5-5.1); Sodium 137 mmol/L (136-145)
[2018-02-06 05:14] LABS: Band 19 % (5-11); Eosinophils 1 % (0-10); Hemoglobin 6.7 g/dL (14.0-18.0); Lymphocytes 9 % (21-51); MDiff Complete? YES; Mean Corpuscular HGB CONC 33.9 g/dL (32.0-36.0); Mean Corpuscular Hemoglobin 30.8 pg (27.0-31.0); Mean Corpuscular Volume 90.8 fL (78.0-98.0); Mean Platelet Volume 6.7 fL (7.4-10.4); Neutrophil 71 % (42-75); PLT Morphology Comment Appears Adequate; Platelet Count 267 thou/uL (130-400); Red Blood Cell (RBC) Count 2.17 mill/uL (4.70-6.10); White Blood Cell (WBC) Count 10.8 thou/uL (4.8-10.8)
[2018-02-06] MEDS: Furosemide 20 MG/2 ML VIAL SLOW IVP SCH ×3 (06:06→22:54)
[2018-02-06] MEDS: Aspirin 81 mg Enteric Coated Tablet PO SCH (08:52)
[2018-02-06] MEDS: Enoxaparin Sodium 100 MG/ML SYRINGE SC SCH ×2 (08:58→20:12)
[2018-02-06] MEDS: Timolol 0.5% Ophth Soln 5 ml Bottle L EYE SCH ×2 (08:59→20:51)
[2018-02-06] MEDS: Famotidine 20 MG TAB PO SCH ×2 (08:59→20:12)
--- NOTE | 2018-02-06 14:47 | PDOC.PN ---
- Subjective Encounter Start Date: 02/06/18 Encounter Start Time: 14:35 Subjective: f/u for large B-cell lymphoma and acute anemia due to chemotherapy -: s/p 5u total PRBC's. Nsg reports weight down 5-6 lbs over last 24h -: with Lasix. - Objective Resuscitation Status: Resuscitation Status FULL:Full Resuscitation MAR Reviewed: Yes Vital Signs & Weight: Vital Signs (12 hours) Temp Pulse Resp BP Pulse Ox 02/06/18 12:36 98 16 02/06/18 12:00 98.8 F 89 16 122/65 95 02/06/18 08:59 83 02/06/18 08:00 98.9 F 83 18 100 02/06/18 07:41 98.9 F 83 18 115/72 100 02/06/18 07:19 100 02/06/18 07:15 67 12 02/06/18 06:05 119/68 02/06/18 04:00 98.7 F 78 18 121/59 L 98 Weight Admit Weight 358 lb 6.4 oz Weight 398 lb 9.6 oz I&O: 02/05/18 02/06/18 02/07/18 06:59 06:59 06:59 Intake Total 3660 1080 720 Output Total 3250 3150 850 Balance 410 -1950 -130 Result Diagrams: 02/06/18 04:48 02/06/18 04:48 Additional Labs: Accuchecks 02/06/18 02/06/18 02/05/18 11:56 06:04 19:19 POC Glucose 210 H 181 H 188 H 02/05/18 16:23 POC Glucose 173 H Laboratory Tests 02/01/18 02/02/18 02/03/18 06:35 05:40 09:06 WBC 27.1 H 30.7 H 42.2 H* Hgb 7.3 L 6.6 L 6.7 L Band Neuts % (Manual) 24 H 24 H 38 H Potassium 02/04/18 02/04/18 02/05/18 03:20 03:20 06:07 WBC 37.7 H 27.5 H Hgb 6.4 L 7.4 L Band Neuts % (Manual) 25 H 2 L Potassium 3.7 Phys Exam - Physical Examination Constitutional: NAD alert, responsive HEENT: PERRLA, sclera anicteric, oral pharynx no lesions Neck: no nodes, no JVD, supple, full ROM Respiratory: no wheezing, no rales, no rhonchi, clear to auscultation bilateral S1, S2 Cardiovascular: RRR, no significant murmur, no rub, gallop obese Gastrointestinal: soft, non-tender, no distention, positive bowel sounds + scrotal edema Musculoskeletal: pulses present, edema present Neurological: normal sensation, moves all 4 limbs Psychiatric: A&O x 3 Skin: no rash, normal turgor, cap refill <2 seconds Dx/Plan (1) Edema Code(s): R60.9 - EDEMA, UNSPECIFIED Status: Acute Qualifiers: Edema type: unspecified Qualified Code(s): R60.9 - Edema, unspecified Comment: Likely multifactorial and dependent, change Lasix 20mg IV q8h, OOB/ ambulate, strict I/O's, daily weight, continue Lasix IV another 24h (2) Large B-cell lymphoma Code(s): C85.10 - UNSPECIFIED B-CELL LYMPHOMA, UNSPECIFIED SITE Status: Chronic Comment: s/p chemo on 02/01/18 (3) Anemia due to chemotherapy Code(s): D64.81 - ANEMIA DUE TO ANTINEOPLASTIC CHEMOTHERAPY; T45.1X5A - ADVERSE EFFECT OF ANTINEOPLASTIC AND IMMUNOSUP DRUGS, INIT Status: Acute Comment: s/ p 5u total PRBC's currently, serial H/H, transfuse 1u PRBC's today (4) Physical deconditioning Code(s): R53.81 - OTHER MALAISE Status: Chronic Comment: PT for mobilization and ambulation, SNF options pending (5) Leukocytosis Code(s): D72.829 - ELEVATED WHITE BLOOD CELL COUNT, UNSPECIFIED Status: Acute Qualifiers: Leukocytosis type: bandemia Qualified Code(s): D72.825 - Bandemia Comment: Likely due to recent chemotherapy, monitor trend, no evidence of active infectious process - Plan 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
[2018-02-06] MEDS: Acetaminophen 325 MG TAB PO PRN (20:09)
[2018-02-06] MEDS: Latanoprost 0.005% Ophth Soln 2.5 ml Bottle EA EYE SCH (20:52)
[2018-02-07 04:55] LABS: Anion Gap 11 mmol/L (10-20); BUN (Urea Nitrogen) 11 mg/dL (8.4-25.7); Calc. Creatinine Clearance 341 mL/min (70-130); Calcium 8.5 mg/dL (7.8-10.44); Carbon Dioxide 34 mmol/L (23-31); Chloride 97 mmol/L (98-107); Estimated GFR-MDRD Greater than 90; Glucose 157 mg/dL (80-115); Sodium 139 mmol/L (136-145)
[2018-02-07 05:24] LABS: Band 8 % (5-11); Eosinophils 1 % (0-10); Hemoglobin 7.1 g/dL (14.0-18.0); Hypochromia SLIGHT = 6-15 cells (100X) (0-5/hpf); Lymphocytes 13 % (21-51); MDiff Complete? YES; Mean Corpuscular HGB CONC 34.4 g/dL (32.0-36.0); Mean Corpuscular Hemoglobin 31.7 pg (27.0-31.0); Mean Corpuscular Volume 92.1 fL (78.0-98.0); Mean Platelet Volume 6.8 fL (7.4-10.4); Monocytes 2 % (0-10); Neutrophil 76 % (42-75); PLT Morphology Comment Appears Adequate; Platelet Count 268 thou/uL (130-400); RBC Distribution Width 15.1 % (11.5-14.5); Red Blood Cell (RBC) Count 2.25 mill/uL (4.70-6.10); White Blood Cell (WBC) Count 4.1 thou/uL (4.8-10.8)
[2018-02-07] MEDS: Furosemide 20 MG/2 ML VIAL SLOW IVP SCH (06:51)
[2018-02-07] MEDS: Enoxaparin Sodium 100 MG/ML SYRINGE SC SCH (09:22)
[2018-02-07] MEDS: Famotidine 20 MG TAB PO SCH (09:24)
[2018-02-07] MEDS: Timolol 0.5% Ophth Soln 5 ml Bottle L EYE SCH (09:24)
[2018-02-07] MEDS: Aspirin 81 mg Enteric Coated Tablet PO SCH (09:24)
[2018-02-07] MEDS ORDERED: Potassium Chloride 20 MEQ TAB PO SCH (10:45)
[2018-02-07 12:09] VITALS: BP 139/77; TEMP 98.2
--- NOTE | 2018-02-07 13:38 | DIS ---
DATE OF ADMISSION: 01/25/2018 DATE OF DISCHARGE: 02/07/2018 DISCHARGE DIAGNOSES: 1. 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 2. Acute anemia secondarily to chemotherapy, status post 6 units of packed red blood cells total. 3. Atrial flutter, status post radiofrequency ablation, 01/27/2018. 4. Diastolic congestive heart failure with preserved ejection fraction of 60%-65%. 5. Generalized edema secondary to volume overload, improved. 6. Morbid obesity. 7. Hypokalemia, secondarily to diuretic therapy. CONSULTATIONS: Dr. Charles with Cardiology Service. Dr. Bermudez with Electrophysiology Service. Medical Oncology Service. Dr. Gamboa with Pulmonology Service. PERTINENT LABORATORY AND X-RAY FINDINGS: Potassium ranged between 3.0-4.9. Lactic acid level ranged between 8.1-17.0. Uric acid level ranged between 5.1-21.1, phosphorus 2.9, magnesium level ranged b etween 1.9-2.4. BNP 98. TSH 0.37. Serum cortisol level 18.9. CBC showed a white blood cell count ranging between 10.8-42.2, hemoglobin ranged between 6.4-10.8. Blood cultures x2 from 01/25/2018 vivek wed no growth at 5 days. Urine culture dated 01/25/2018 showed less than 10,000 colonies of mixed sk in haider. C. difficile antigen and toxin 01/30/2018 negative. Portable chest x-ray dated 01/25/2018 showed no acute cardiopulmonary process. CT angiogram of the chest dated 01/25/2018 showed no evide nce of thromboembolism. Multiple lymphadenopathy of the chest consistent with lymphoma. Transesopha geal echocardiogram dated 01/27/2018 showed no intracardiac thrombus. Ejection fraction in 60% range . HOSPITAL COURSE: The patient was initially admitted after presenting with generalized weakness in th e context of stage IV large B cell lymphoma diagnosis with current chemotherapy. The patient was not ed initially with hypotension and elevated lactic acid level in the emergency room, receiving Lovenox , aspirin and intravenous fluids. The patient initially was managed for questionable cardiac event d ue to mild elevation in troponin I and ruled out for thromboembolic phenomenon in the context of know n large B cell lymphoma. The patient was evaluated by the Cardiology Service and discovered with atr ial flutter. The patient underwent evaluation by Electrophysiology Service proceeding to radiofreque ncy ablation, successfully terminating atrial flutter on 01/27/2018. The patient also received aggre ssive IV fluid hydration and was monitored with serial CBCs due to chemotherapy and decreasing hemogl obin. The patient received a total of 6 units of packed red blood cells over the entire 14-day hospi dara course secondarily to chemotherapy influence. The patient did receive anticoagulation post-radio frequency ablation with initial recommendations for 30-day course. Due to the patient's recurrent ac [place] anemia and chemotherapy and ongoing need for chemotherapy, recommendations are for a full-strengt h aspirin 325 mg daily for 30 days, followed by 81 mg daily. No further anticoagulation recommended. The patient was noted with severe weakness as well as profound edema receiving IV Lasix with excell ent diuresis and overall improvement in mobility and respiratory status. Due to the patient's genera lized weakness, comorbid status and social situation, the patient was deemed an appropriate candidate for ongoing short-term skilled care. I have examined the patient at the time of discharge and discu ssed followup instructions, at which point, the patient verbalized understanding and in agreement. T he patient is overall clinically stable and ready for discharge to [facility], 02/07/2018. DISCHARGE MEDICATIONS: 1. Enteric-coated aspirin 325 mg 1 tab p.o. daily. 2. [place] 3 flaxseed oil 1200 mg p.o. b.i.d. 3. Lasix 40 mg 1 tab p.o. daily. 4. Hydralazine 50 mg p.o. b.i.d. 5. Xalatan 0.005% one drop to each eye at bedtime. 6. Lisinopril 40 mg p.o. daily. 7. Nifedipine ER 60 mg p.o. daily. 8. Zocor 40 mg p.o. at bedtime. 9. Timolol maleate 1 drop to the left eye b.i.d. 10. DuoNeb 3 mL nebulized q.2-4 hours p.r.n. 11. K-Dur 20 mEq p.o. b.i.d. FOLLOWUP: The patient to follow up with his primary care provider, Dr. Brandie Graham after discha rge from [facility]. The patient will follow up with Dr. Tony Jaramillo with M edical Oncology Service 02/21/2018 at 08:45 a.m. The patient may follow up with Dr. Garcia with [facility]. CONDITION ON DISCHARGE: Fair. ACTIVITY: Ad angus. Rolling walker with standby/contact guard assistance. Fall risk precautions. DIET: Vegetarian with 1.5 liter per 24-hour fluid restriction. Ensure b.i.d. with meals. CODE STATUS: Full. DISPOSITION: Discharged to [facility], 02/07/2018. Total time preparing and coordinating discharge is 37 minutes.
== END 2018-02-07 14:05 | DRG 274 ==
LOC: ERS 07:31 → ERHOLD 10:07 → IMCU/EMU 13:37 → ONC 01-29 20:28
PROVIDERS: ADMIT Internal Medicine; ATTEND Internal Medicine
PROC: 02583ZZ Destruction of Conduction Mechanism, Percutaneous Approach (ICD-10-PCS; principal; 2018-01-27)
PROC: 30233N1 Transfusion of Nonautologous Red Blood Cells into Peripheral Vein, Percutaneous Approach (ICD-10-PCS; 2018-02-02)
DX: I48.92 Unspecified atrial flutter (principal); C83.30 Diffuse large B-cell lymphoma, unspecified site; Z68.42 Body mass index [BMI] 45.0-49.9, adult; N17.9 Acute kidney failure, unspecified; E87.2 Acidosis; I50.32 Chronic diastolic (congestive) heart failure; D64.81 Anemia due to antineoplastic chemotherapy; T45.1X5A Adverse effect of antineoplastic and immunosuppressive drugs, initial encounter; Y92.9 Unspecified place or not applicable; E66.01 Morbid (severe) obesity due to excess calories; E87.6 Hypokalemia; R59.1 Generalized enlarged lymph nodes; R60.9 Edema, unspecified; R09.02 Hypoxemia; E87.5 Hyperkalemia; G47.33 Obstructive sleep apnea (adult) (pediatric); E78.5 Hyperlipidemia, unspecified; M21.372 Foot drop, left foot; I11.0 Hypertensive heart disease with heart failure; E86.0 Dehydration; R13.10 Dysphagia, unspecified; H40.9 Unspecified glaucoma; Z82.49 Family history of ischemic heart disease and other diseases of the circulatory system; Z82.3 Family history of stroke; Z80.0 Family history of malignant neoplasm of digestive organs
CPT/HCPCS: 36415; 36416; 36430; 71045; 71275; 76942; 80048; 80053; 81001; 81002; 82010; 82310; 82533; 82550; 82553; 82805; 83605; 83615; 83735; 83880; 84100; 84443; 84484; 84550; 85007; 85025; 85027; 85610; 85730; 86850; 86900; 86901; 87040; 87086; 87324; 87449; 93005; 93306; 93312; 93613; 93623; 93653; 94640; 94760; 96360; 96361; 96372; 96377; A4216; C1730; C1769; G8978-GP-CJ; G8979-GP-CI; G8987-GO-CI; G8988-GO-CI; G8989-GO-CI; J0696; J1100; J1200; J1265; J1453; J1642; J1644; J1650; J1815; J1940; J2001; J2405; J2469; J2505; J2704; J2783; J3010; J7050; J7070; J7620; J9000; J9070; J9310; J9370; P9016

== ENCOUNTER 2018-02-21 08:36 | Day surgery (SDC) | payer MEDICARE ==
[2018-02-21] MEDS ORDERED: PALONOSETRON HCL 0.05 MG/ML 5 ML VIAL IVP SCH (09:00)
[2018-02-21] MEDS ORDERED: Dexamethasone 10 MG/ML VIAL SLOW IVP SCH (09:00)
[2018-02-21] MEDS ORDERED: DOXORUBICIN IVPB SCH (09:15)
[2018-02-21] MEDS ORDERED: CYCLOPHOSPHAMIDE IVPB SCH (09:15)
[2018-02-21] MEDS ORDERED: Pegfilgrastim 6 MG/0.6 ML Delivery Kit SQ SCH (09:15)
[2018-02-21] MEDS ORDERED: RITUXIMAB IVPB SCH (09:15)
[2018-02-21] MEDS ORDERED: diphenhydrAMINE 50 MG/ML VIAL IVP SCH (09:15)
[2018-02-21] MEDS ORDERED: SODIUM CHLORIDE 0.9% IVPB SCH ×3 (09:15)
[2018-02-21] MEDS ORDERED: vinCRIStine Sulfate 2 MG in Sodium Chloride 0.9% 50 ML IVPB SCH (09:15)
[2018-02-21] MEDS ORDERED: Acetaminophen 500 MG TAB PO SCH (09:15)
[2018-02-21] MEDS ORDERED: Sodium Chloride 0.9% 30 ML ONE (09:32)
[2018-02-21] MEDS ORDERED: Dexamethasone 4 mg/ml Vial SLOW IVP SCH (12:00)
[2018-02-21 20:21] VITALS: BP 154/81; TEMP 98.9
== END 2018-02-21 20:28 | disposition home or self-care (01) ==
LOC: ONC/OP 08:36 → ONC 08:54 → ONC/OP 20:28
PROVIDERS: ATTEND Internal Medicine Hematology & Oncology
DX: Z51.11 Encounter for antineoplastic chemotherapy (principal); C83.30 Diffuse large B-cell lymphoma, unspecified site; I10 Essential (primary) hypertension; I48.91 Unspecified atrial fibrillation; Z79.82 Long term (current) use of aspirin; Z79.899 Other long term (current) drug therapy; Z88.0 Allergy status to penicillin
CPT/HCPCS: 36415; 80053; 82248; 83615; 84100; 84550; 96367; 96375; 96377; 96413; 96415; 96417; A4216; J1100; J1200; J1453; J1642; J2469; J2505; J7050; J9000; J9070; J9310; J9370

== ENCOUNTER 2018-03-14 08:21 | Day surgery (SDC) | payer MEDICARE, OTHER ==
[2018-03-14] MEDS ORDERED: PALONOSETRON HCL 0.05 MG/ML 5 ML VIAL IVP SCH (09:15)
[2018-03-14] MEDS ORDERED: Dexamethasone 10 MG/ML VIAL SLOW IVP SCH (09:15)
[2018-03-14] MEDS ORDERED: CYCLOPHOSPHAMIDE IVPB SCH (09:15)
[2018-03-14] MEDS ORDERED: diphenhydrAMINE 25 MG, Admixture Fee 1 EACH in Sodium Chloride 0.9% 50 ML IVPB SCH (09:15)
[2018-03-14] MEDS ORDERED: Pegfilgrastim 6 MG/0.6 ML Delivery Kit SQ SCH (09:15)
[2018-03-14] MEDS ORDERED: SODIUM CHLORIDE 0.9% IVPB SCH ×3 (09:15→09:30)
[2018-03-14] MEDS ORDERED: Acetaminophen 500 MG TAB PO SCH (09:15)
[2018-03-14] MEDS ORDERED: Sodium Chloride 0.9% 30 ML ONE (09:17)
[2018-03-14 09:20] VITALS: BP 132/84
[2018-03-14] MEDS ORDERED: RITUXIMAB IVPB SCH (09:30)
[2018-03-14] MEDS ORDERED: vinCRIStine Sulfate 2 MG in Sodium Chloride 0.9% 50 ML IVPB SCH (09:30)
[2018-03-14] MEDS ORDERED: DOXORUBICIN IVPB SCH (09:30)
[2018-03-14 10:19] LABS: #Basophils 0.1 thou/uL (0.0-0.2); #Eosinphils 0.2 thou/uL (0.0-0.7); #Lymphocytes 1.6 thou/uL (1.20-3.40); #Monocytes 1.1 thou/uL (0.11-0.59); #Neutrophils 4.8 thou/uL (1.40-6.50); %Basophils 0.7 % (0.0-1.0); %Lymphocytes 20.7 % (21.0-51.0); %Monocytes 13.7 % (0.0-10.0); %Neutrophils 62.9 % (42.0-75.0); Mean Corpuscular HGB CONC 31.7 g/dL (32.0-36.0); Mean Corpuscular Hemoglobin 29.8 pg (27.0-31.0); Mean Corpuscular Volume 94.2 fL (78.0-98.0); Platelet Count 367 thou/uL (130-400); RBC Distribution Width 15.8 % (11.5-14.5); Red Blood Cell (RBC) Count 3.69 mill/uL (4.70-6.10); White Blood Cell (WBC) Count 7.7 thou/uL (4.8-10.8)
[2018-03-14 10:48] LABS: ALT (SGPT) 24 U/L (8-55); AST (SGOT) 19 U/L (5-34); Albumin 3.4 g/dL (3.4-4.8); Alkaline Phosphatase 61 U/L (40-150); Anion Gap 10 mmol/L (10-20); BUN (Urea Nitrogen) 9 mg/dL (8.4-25.7); Bilirubin, Total 0.2 mg/dL (0.2-1.2); Calc. Creatinine Clearance 237 mL/min (70-130); Carbon Dioxide 25 mmol/L (23-31); Chloride 107 mmol/L (98-107); Estimated GFR-MDRD Greater than 90; Globulin 2.8 g/dL (2.4-3.5); Glucose 113 mg/dL (80-115); LDH 210 U/L (125-220); Protein, Total 6.2 g/dL (5.8-8.1); Sodium 138 mmol/L (136-145); Uric Acid 5.7 mg/dL (3.5-7.2)
== END 2018-03-14 18:40 | disposition home or self-care (01) ==
LOC: ONC/OP 08:21
PROVIDERS: ATTEND Internal Medicine Hematology & Oncology
DX: Z51.11 Encounter for antineoplastic chemotherapy (principal); C83.30 Diffuse large B-cell lymphoma, unspecified site; Z88.0 Allergy status to penicillin; Z88.8 Allergy status to other drugs, medicaments and biological substances
CPT/HCPCS: 80053; 83615; 84550; 85025; 96367; 96375; 96377; 96411; 96413; 96415; 96417; A4216; J1100; J1200; J1453; J1642; J2469; J2505; J7050; J9000; J9070; J9310; J9370

== ENCOUNTER 2018-04-04 09:19 | Day surgery (SDC) | payer MEDICARE, OTHER ==
[2018-04-04] MEDS ORDERED: vinCRIStine Sulfate 2 MG in Sodium Chloride 0.9% 50 ML IVPB SCH (09:45)
[2018-04-04] MEDS ORDERED: Acetaminophen 500 MG TAB PO SCH (09:45)
[2018-04-04] MEDS ORDERED: diphenhydrAMINE 50 MG/ML VIAL IVP SCH ×2 (09:45→12:30)
[2018-04-04] MEDS ORDERED: SODIUM CHLORIDE 0.9% IVPB SCH ×4 (09:45→10:00)
[2018-04-04] MEDS ORDERED: CYCLOPHOSPHAMIDE IVPB SCH ×2 (09:45→10:00)
[2018-04-04] MEDS ORDERED: RITUXIMAB IVPB SCH (09:45)
[2018-04-04] MEDS ORDERED: PALONOSETRON HCL 0.05 MG/ML 5 ML VIAL IVP SCH (09:45)
[2018-04-04] MEDS ORDERED: Dexamethasone 10 MG/ML VIAL SLOW IVP SCH (09:45)
[2018-04-04] MEDS ORDERED: DOXORUBICIN IVPB SCH (09:45)
[2018-04-04 10:14] VITALS: BP 105/56; TEMP 97.4
[2018-04-04] MEDS ORDERED: Pegfilgrastim Onpro 6 MG/0.6 ML SQ SCH (12:00)
[2018-04-04] MEDS ORDERED: Sodium Chloride 0.9% 30 ML ONE (12:51)
[2018-04-05] MEDS ORDERED: predniSONE 50 MG TAB PO SCH (08:00)
== END 2018-04-04 18:16 | disposition home or self-care (01) ==
LOC: ONC/OP 09:19
PROVIDERS: ATTEND Internal Medicine Hematology & Oncology
DX: Z51.11 Encounter for antineoplastic chemotherapy (principal); C83.30 Diffuse large B-cell lymphoma, unspecified site; I10 Essential (primary) hypertension; I48.91 Unspecified atrial fibrillation; Z86.73 Personal history of transient ischemic attack (TIA), and cerebral infarction without residual deficits; Z79.82 Long term (current) use of aspirin; Z79.899 Other long term (current) drug therapy; Z88.0 Allergy status to penicillin; Z88.8 Allergy status to other drugs, medicaments and biological substances; Z88.5 Allergy status to narcotic agent
CPT/HCPCS: 80053; 82248; 83615; 84100; 84550; 96367; 96375; 96377; 96413; 96415; 96417; A4216; J1100; J1200; J1453; J1642; J2469; J2505; J7050; J9000; J9070; J9310; J9370

== ENCOUNTER 2018-04-20 07:38 | Outpatient (CLI) | payer MEDICARE, OTHER ==
--- NOTE | 2018-04-20 12:13 | PET ---
PET SCAN WITH CT ATTENUATION CORRECTION: Date: 04/20/18 HISTORY: Lymphoma. Restaging. COMPARISON: 12/27/17. FINDINGS: Physiologic uptake of radiotracer is present throughout the enteric system and along each urinary tra ct. Enlarged, but nonhypermetabolic lymph nodes remain throughout each axilla. Nonenlarged lymph node s are present throughout the mediastinum and retroperitoneum. No hypermetabolic activity associated w ith these lymph nodes. At the posterior margin of the spleen, a small focus of increased radiotracer uptake shows a maximum SUV of 3.2, less than that of the liver. Slightly increased uptake is apparent about the muscles of phonation and the pelvic musculature. Hete rogeneous uptake scattered throughout the bone marrow is likely reactive to recent treatment. No foca l bone lesions are reliably demonstrated. IMPRESSION: 1. Near complete response. Single focus of hypermetabolic activity remains at the posterior margin o f the spleen. Deauville criteria score of 3. 2. No new abnormalities are demonstrated. POS: [facility]
== END 2018-04-20 07:39 | disposition home or self-care (01) ==
LOC: PET 07:38
PROVIDERS: ATTEND Internal Medicine Hematology & Oncology
DX: C85.90 Non-Hodgkin lymphoma, unspecified, unspecified site (principal)
CPT/HCPCS: 78815; A9552

== ENCOUNTER 2018-04-25 08:31 | Day surgery (SDC) | payer MEDICARE, OTHER ==
[2018-04-25] MEDS ORDERED: Pegfilgrastim Onpro 6 MG/0.6 ML SQ SCH (10:00)
[2018-04-25] MEDS ORDERED: diphenhydrAMINE 25 MG CAP PO SCH (10:00)
[2018-04-25] MEDS ORDERED: Acetaminophen 500 MG TAB PO SCH (10:00)
[2018-04-25] MEDS ORDERED: Dexamethasone 10 MG/ML VIAL SLOW IVP SCH (10:00)
[2018-04-25] MEDS ORDERED: PALONOSETRON HCL 0.05 MG/ML 5 ML VIAL IVP SCH (10:00)
[2018-04-25] MEDS ORDERED: Sodium Chloride 0.9% 30 ML ONE (10:02)
[2018-04-25] MEDS ORDERED: CYCLOPHOSPHAMIDE IVPB SCH (10:15)
[2018-04-25] MEDS ORDERED: SODIUM CHLORIDE 0.9% IVPB SCH ×3 (10:15)
[2018-04-25] MEDS ORDERED: RITUXIMAB IVPB SCH (10:15)
[2018-04-25] MEDS ORDERED: vinCRIStine Sulfate 2 MG in Sodium Chloride 0.9% 50 ML IVPB SCH (10:15)
[2018-04-25] MEDS ORDERED: DOXORUBICIN IVPB SCH (10:15)
[2018-04-25 10:41] VITALS: BP 132/80; TEMP 98.1
== END 2018-04-25 16:44 | disposition home or self-care (01) ==
LOC: ONC/OP 08:31
PROVIDERS: ATTEND Internal Medicine Hematology & Oncology
DX: Z51.11 Encounter for antineoplastic chemotherapy (principal); C83.30 Diffuse large B-cell lymphoma, unspecified site; I48.91 Unspecified atrial fibrillation; I10 Essential (primary) hypertension; Z86.73 Personal history of transient ischemic attack (TIA), and cerebral infarction without residual deficits; Z79.82 Long term (current) use of aspirin; Z79.899 Other long term (current) drug therapy; Z88.0 Allergy status to penicillin; Z88.5 Allergy status to narcotic agent; Z88.8 Allergy status to other drugs, medicaments and biological substances
CPT/HCPCS: 36415; 80053; 82248; 83615; 84100; 84550; 96367; 96375; 96377; 96411; 96413; 96415; 96417; J1100; J1453; J1642; J2469; J2505; J7050; J9000; J9070; J9310; J9370

== ENCOUNTER → 2018-05-15 | Day surgery (SDC) | payer MEDICARE, OTHER ==
[~2018-05-15] MED LIST: Acetaminophen 500 MG TAB PO SCH; CYCLOPHOSPHAMIDE IVPB SCH; DOXORUBICIN IVPB SCH; Dexamethasone 4 mg/ml Vial SLOW IVP SCH; Fosaprepitant Dimeglumine 150 MG in Sodium Chloride 0.9% 100 ML IVPB SCH; PALONOSETRON HCL 0.05 MG/ML 5 ML VIAL IVP SCH; Pegfilgrastim Onpro 6 MG/0.6 ML SQ SCH; RITUXIMAB IVPB SCH; SODIUM CHLORIDE 0.9% IVPB SCH; Sodium Chloride 0.9% 40 ML ONE; diphenhydrAMINE 25 MG CAP PO PRN; predniSONE 50 MG TAB PO SCH; vinCRIStine Sulfate 2 MG in Sodium Chloride 0.9% 50 ML IVP SCH
[2018-05-15 17:00] VITALS: BP 130/80
== END ==
LOC: ONC/OP 10:05
PROVIDERS: ATTEND Internal Medicine Hematology & Oncology
DX: Z51.11 Encounter for antineoplastic chemotherapy (principal); C83.30 Diffuse large B-cell lymphoma, unspecified site; I10 Essential (primary) hypertension; Z86.73 Personal history of transient ischemic attack (TIA), and cerebral infarction without residual deficits; Z79.82 Long term (current) use of aspirin; Z79.899 Other long term (current) drug therapy; Z88.0 Allergy status to penicillin; Z88.5 Allergy status to narcotic agent; Z88.8 Allergy status to other drugs, medicaments and biological substances
CPT/HCPCS: 80053; 82248; 83615; 84100; 84550; 96367; 96375; 96377; 96411; 96413; 96417; J1100; J1453; J1642; J2469; J2505; J7050; J9000; J9070; J9310; J9370